=== PATIENT | female | born 1995 | race Caucasian/White ===

== ENCOUNTER 2016-04-17 19:14 | Inpatient (IN) | payer OTHER ==
[~2016-04-17] VITALS: Ht 182.9 cm; Wt 118.8 kg
[~2016-04-17 19:14] MED LIST: METH36TA2 PO; [UNRECOGNIZED DRUG - CODE] PO
--- NOTE | 2016-04-17 22:08 | DRSVH ---
PROCEDURE: US OB BIOPHYSICAL PROFILE AND UMBILICAL DOPPLER INDICATIONS: HEARTBEAT OUTSIDE/PRIOR DATING DATA: Last menstrual period (LMP): 07/22/15. LMP-based estimated date of delivery (MEHUL): 04/27/16. First dating scan (date and location): 10/2515. Dr. Noriega's office. Estimated date of delivery (MEHUL) from first dating scan: 04/24/15. TECHNIQUE: Real-time scanning was performed of the fetus for biophysical profile, with image documentation. Col or and pulse Doppler interrogation was also performed of the umbilical artery near its insertion into the placenta. Endovaginal scanning: Not performed COMPARISON: None. FINDINGS: General: A single living intrauterine gestation is present. Presentation: Vertex. Placenta: Placental position is anterior, without previa. Amniotic fluid index: 13.0 cm, normal range is 5-24 cm. heart rate: 157 beats per minute. Maternal cervical canal: Not visualized Estimated gestational age from initial scan: 39 weeks, zero d ays. Biophysical profile: Tone: 2 points. Movement: 2 points. Respiration: 2 points. Largest pocket of fluid: 2 points. IMPRESSION: 1. Single live intrauterine gestation in vertex position with 8/8 biophysical profile. Dictated by: Stephie Vasquez M.D. on 04/17/2016 at 22:06 Approved by: Stephie Vasquez M.D. on 04/17/2016 at 22:06
[2016-04-18] MEDS ORDERED: Lactated Ringer's 1,000 ML IV PRN (00:12)
[2016-04-18] MEDS ORDERED: Oxytocin 30 Units/500 mL LR 30 UNITS in IV Premix 1 EACH IV PRN (00:15)
[2016-04-18] MEDS ORDERED: Hemorrhage Kit, Post Partum XX ONE (00:15)
[2016-04-18] MEDS ORDERED: Methylergonovine 0.2 mg/mL Inj IM PRN (00:15)
[2016-04-18] MEDS ORDERED: Sodium Chloride LOK Flush 10 mL Syringe IVFLUSH PRN (00:15)
[2016-04-18] MEDS ORDERED: Carboprost 250 mCg/mL Inj IM PRN (00:15)
[2016-04-18] MEDS ORDERED: Oxytocin 10 Unit/mL Inj IM PRN (00:15)
[2016-04-18 01:07] LABS: BASOPHILS % (AUTO) 0.1 % (0-3); EOSINOPHILS % (AUTO) 0.7 % (0-5); MONOCYTES % (AUTO) 5.9 % (4-12); Mean Corpuscular Hemoglobin 30.3 pg (27.0-35.0); Mean Corpuscular Volume 91.8 fL (81-100); NEUTROPHILS % (AUTO) 79.4 % (40-74); Platelet Count 263 bil/L (150-400)
--- NOTE | 2016-05-20 08:53 | PCM.DC.MED ---
Discharge Summary Date of Service May 20, 2016 Dates of Hospitalization Date of Hospital Admission Apr 17, 2016 at 23:04 Date of Discharge: May 19, 2016 Providers: Admitting Physician: Diaz Noriega MD Primary Care Physician: Debora Servin PA-C Attending Physician: Diaz Noriega MD Procedures XRay, CTs & MRIs US OB BIOPHYSICAL PROFILE AND UMBILICAL DOPPLER INDICATIONS: HEARTBEAT OUTSIDE/PRIOR DATING DATA: Last menstrual period (LMP): 07/22/15. LMP-based estimated date of delivery (MEHUL): 04/27/16. First dating scan (date and location): 10/2515. Dr. Noriega's office. Estimated date of delivery (MEHUL) from first dating scan: 04/24/15. TECHNIQUE: Real-time scanning was performed of the fetus for biophysical profile, with image documentation. Color and pulse Doppler interrogation was also performed of the umbilical artery near its insertion into the placenta. Endovaginal scanning: Not performed COMPARISON: None. FINDINGS: General: A single living intrauterine gestation is present. Presentation: Vertex. Placenta: Placental position is anterior, without previa. Amniotic fluid index: 13.0 cm, normal range is 5-24 cm. heart rate: 157 beats per minute. Maternal cervical canal: Not visualized Estimated gestational age from initial scan: 39 weeks, zero days. Biophysical profile: Tone: 2 points. Movement: 2 points. Respiration: 2 points. Largest pocket of fluid: 2 points. IMPRESSION: 1. Single live intrauterine gestation in vertex position with 8/8 biophysical profile. Dictated by: Stephie Vasquez M.D Hospital Course This is a 20 year old female with early labor. She has been having stuttering onset of contractions, with a concern of poor beat to beat variability with a baseline in the 130's and slowly drifting HR between 150 and 125, without reassuring accelerations. BPP was done that was normal. That strip was reviewed with Dr. Santos and she was then able to return home. Exam Test 04/17/16 20:50 White Blood Count 19.0th/mm3 (3.8-10.1) Red Blood Count 4.16mil/mm3 (3.90-5.20) Hemoglobin 12.6g/dL (12.0-15.6) Hematocrit 38.2% (35.0-46.0) Mean Corpuscular Volume 91.8fL (81-100) Mean Corpuscular Hemoglobin 30.3pg (27.0-35.0) Mean Corpuscular Hemoglobin Concent 33.0% (32.0-37.0) Red Cell Distribution Width 13.0% (12.3-15.4) Platelet Count 263bil/L (150-400) Neutrophils (%) (Auto) 79.4% (40-74) Lymphocytes (%) (Auto) 13.2% (14-46) Monocytes (%) (Auto) 5.9% (4-12) Eosinophils (%) (Auto) 0.7% (0-5) Basophils (%) (Auto) 0.1% (0-3) Hold Purple Top Tube Received (Received) Hold [place] Top Tube Received (Received) Discharge Medications Discharge Medications ([Ascorbic Acid]) 500 MG TABLET 500 MG PO BIDWM Prescribed by: ISA NORIEGA MD Ferrous Sulfate (Feosol) 325 Mg Tablet 325 MG PO BIDWM Prescribed by: ISA NORIEGA MD Vit W-Ca,Fe,FA(<1 mg) ( Formula) 1 Each Tablet 1 EACH PO DAILY (Reported) As needed Ibuprofen (Ibuprofen) 800 Mg Tablet 800 MG PO Q6H PRN PRN For Pain Prescribed by: MD Leann RENTERIA H Edwin MD May 20, 2016 08:48
--- NOTE | 2016-05-20 08:57 | PCM.HPOB ---
Subjective Referring Provider: Admitting Physician: Diaz Noriega MD Primary Care Physician: Debora Servin PA-C Attending Physician: Diaz Noriega MD Chief Complaint This is a 20 year old female with early labor. She has had stuttering onset of contractions, with concern has been poor beat to beat variability with a baseline in the 130's and slowly drifting HR between 150 and 125, without reassuring accelerations. A BPP will be done and the strip will be reviewed with Dr. Santos. Allergy Coded Allergies: Penicillins (Verified Allergy, Severe, rash, 08/17/12) vancomycin (Verified Allergy, Mild, POSSIBLE ALLERGY,ITCHING, 02/07/09) Sulfa (Sulfonamide Antibiotics) (Verified Allergy, Unknown, rash, 04/26/16) Exam Constitutional: Well-developed HEENT: Atraumatic Abdomen: Gravid, Normal bowel sounds, No tenderness Extremities: No Edema OB Intrapartum Assessment/Plan Assessment This is a 20 year old female with early labor, contractions now resolved, BPP normal and tracing improved. Returning home for continued clinic care. Post plan: Anticipate discharge home today Diaz Noriega MD May 20, 2016 08:49
[2016-09-29] MEDS ORDERED: DESO1TAB35 PO (18:34)
[2016-09-29] MEDS ORDERED: CITA40TA13 PO (18:34)
[2016-09-29] MEDS ORDERED: BUSP10TA2 PO (18:34)
== END 2016-04-18 07:43 | disposition home or self-care (01) | DRG 780 ==
LOC: FBCO 19:14 → FBC 23:04
PROVIDERS: ADMIT Family Medicine; ATTEND Family Medicine
DX: O47.1 False labor at or after 37 completed weeks of gestation (principal); Z3A.39 39 weeks gestation of pregnancy

== ENCOUNTER 2016-04-25 22:24 | Inpatient (IN) | payer OTHER ==
[~2016-04-25] VITALS: Ht 177.8 cm; Wt 121.1 kg
[2016-04-25] MEDS ORDERED: Lactated Ringer's 2,000 ML IV ONE (23:30)
[2016-04-26] MEDS ORDERED: Lactated Ringer's 1,000 ML IV ONE (01:00)
--- NOTE | 2016-04-26 03:23 | PCM.HPOB ---
Subjective Referring Provider: Admitting Physician: Primary Care Physician: Debora Servin PA-C Attending Physician: Diaz Noriega MD Chief Complaint Contractions and Heart Tracing issues History of Present History of Present Illness This is a 20 year old female with early labor. She has had a week of stuttering onset of contractions, with 2 previous evals in the center, now presenting with increasing intensity of contractions all day yesterday, and contractions on the monitor for 4 hours so far, every 2-5 minutes. The concern has been poor beat to beat variability with a baseline in the 130's and slowly drifting HR between 150 and 125, without reassuring accelerations. There have been 3 late decelerations, drifting slowly down to the 120s after a contraction. A week ago she had the same heart beat concern and a BPP was done that was normal. That strip was reviewed with Dr. Santos and she was then able to return home, returning once with dehydration/maternal tachycardia from vomiting, responding to IVF, and with a reassuring tracing at that visit 2 days ago. prior to this point has been routine. OB History: (1), Para (0), Term Obstetrical Complications: None Past Medical History Hx Tobacco Use: No Hx Alcohol Use: No Hx Substance Use: No Past Family History Living Arrangement: with Family Genetic Screening/Counseling Genetic Screening/Counseling: Negative Genetic Screening: Neural tube defect, Down syndrome Review of Systems Constitutional: Y: Change of appitite, Chills, Dizziness, Fever, Malaise, Other , Pain, Sweats, Weakness, Weight loss Eyes: Denies: Blurred Vision, Conjunctive Inflammation, Double Vision, Eyelid Inflammation, Other, Pain, Redness, Vision Changes ENT: Denies: Dental Problems, Dysphagia, Ear Discharge, Ear Pain, Hoarseness, Membranes Dry, Nasal Congestion, Nose Discharge, Nose Pain, Other, Throat Pain, Tinnitus, Ulcers/Sores in Mouth Cardiovascular: Denies: Chest Pain, Edema, Orthopnea, Other, Palpitations, SOB while laying flat Respiratory: Denies: Cough, Cough with bloody sputum, Other, Pleuritic Chest Pain, Pleuritic Chest Pain, SOB with Exertion, Sputum, Wheezing Gastrointestinal: Reports: Abdominal Pain Genitourinary: Denies: Anuria, Change in Frequency, Dysuria, Hematuria, Incontinence, Nocturia, Other, Retention Musculoskeletal: Denies: Back Pain, Deformity, Limitation of Function, Neck Pain, Other, Redness, Shoulder Pain, Swelling Skin/Breasts: Denies: Bruising, Discharge, Dry or Flakiness, Jaundice, Lesions , Masses, Mastalgia, Other, Rash, Scars, Ulcers Skin: Denies: Bruising, Dry or Flakiness, Jaundice, Lesions, Other, Rash, Scars , Ulcers Neurological: Denies: Change in Speech, Confusion, Dizziness, Incoordination, Numbness, Other, Seizures, Somnolence, Tremors, Weakness Psychologic: Denies: Agitation, Anxious, Apprehensive, Depression, Insomnia, Instability, Nervousness, Other Endocrine: Denies: Blood Glucose Review, Change in Appitite, Diaphoresis, Excessive Thirst, Intolerent to Heat/Cold, Other, Recent A1C, Urinating frequently Hematologic: Denies: Abnormal bleeding, Adenopathy, Bruising, Other Allergy Coded Allergies: Penicillins (Verified Allergy, Severe, rash, 08/17/12) vancomycin (Verified Allergy, Mild, POSSIBLE ALLERGY,ITCHING, 02/07/09) Sulfa (Sulfonamide Antibiotics) (Verified Allergy, Unknown, rash, 04/26/16) Exam Vital Signs Exam FHT 130-150 Cervix 1.5 cm, 70% effaced, Vertex, -2 station Absent reassuring accelerations Constitutional: Well-developed, Well-nourished HEENT: Atraumatic Lungs: Clear to Auscultation Heart: Exam Unremarkable Abdomen: Gravid Extremities: No Edema Neurological/Psychiatric: Oriented X3 Neuro: Grossly Neurologically Intact Labs/Diagnostics Maternal Blood Type: O Hx Rho(D) Immune Globulin: Yes Antibody Screen: Negative Group B Strep Results: Negative Previous Infant with GBS: No Rubella: Immune OB Intrapartum Assessment/Plan Assessment 39 6/7 Weeks EGA Early Labor Non Reassuring Heart Tracing Discussed with Dr. Radford Proceed with BPP. If reassuring will try on Pitocin. If not normal will proceed with operative delivery Diaz Noriega MD Apr 26, 2016 03:04
[2016-04-26] MEDS ORDERED: Hemorrhage Kit, Post Partum XX ONE (03:50)
[2016-04-26] MEDS ORDERED: Methylergonovine 0.2 mg/mL Inj IM PRN (03:50)
[2016-04-26] MEDS ORDERED: Sodium Chloride LOK Flush 10 mL Syringe IVFLUSH PRN (03:50)
[2016-04-26] MEDS ORDERED: Oxytocin 10 Unit/mL Inj IM PRN (03:50)
[2016-04-26] MEDS ORDERED: Oxytocin 30 Units/500 mL LR 30 UNITS in IV Premix 1 EACH IV PRN (03:50)
[2016-04-26] MEDS ORDERED: Carboprost 250 mCg/mL Inj IM PRN (03:50)
[2016-04-26 04:02] LABS: Mean Corpuscular Hemoglobin 30.1 pg (27.0-35.0); Mean Corpuscular Volume 91.4 fL (81-100)
[2016-04-26] MEDS ORDERED: Oxytocin 30 Units/500 mL LR Premix IV SCH (05:35)
[2016-04-26] MEDS ORDERED: PREN-12 PO (05:40)
[2016-04-26] MEDS: Lactated Ringer's 1,000 ML IV PRN ×2 (06:15→18:36)
--- NOTE | 2016-04-26 08:29 | DRSVH ---
PROCEDURE: US OB BIOPHYSICAL PROFILE AND UMBILICAL DOPPLER INDICATIONS: Non reassuring Heart Rate tracing OUTSIDE/PRIOR DATING DATA: Last menstrual period (LMP): 07/22/15. LMP-based estimated date of delivery (MEHUL): 04/27/16. First dating scan (date and location): 11/01/15. Estimated date of delivery (MEHUL) from first dating scan: 04/24/16. TECHNIQUE: Real-time scanning was performed of the fetus for biophysical profile, with image documentation. Col or and pulse Doppler interrogation was also performed of the umbilical artery near its insertion into the placenta. COMPARISON: [facility] Ultrasound, US, US OB>14 WKS ANATOMY COMP, 12/26/2015, 14:33. [facility], US, US OB BIOPHYSICAL+UMB DOP, 04/17/2016, 21:04. FINDINGS: General: A single living intrauterine gestation is present. Presentation: Vertex Placenta: Placental position is anterior, without previa. 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 Single living intrauterine in vertex position redemonstrated. 2. Normal biophysical profile score of 8/8. 3. Normal umbilical artery Doppler with preserved diastolic flow. Dictated by: Rony Mendez M.D. on 04/26/2016 at 8:27 Approved by: Rony Mendez M.D. on 04/26/2016 at 8:27
[2016-04-26] MEDS ORDERED: Bupivacaine-MPF 0.25% 30 mL Inj ONE (15:00)
--- NOTE | 2016-04-26 18:35 | PCM.PNOBIP ---
Subjective Date of Service Apr 26, 2016 Delivery plan: Spontaneous Vaginal Delivery Subjective FHT are in the normal range with good variability and accels. CTX are every 3-6 min on Pitocin 14. Temp is 98.0 She appears very uncomfortable. Pain Management: Epidural Group B Strep Results: Negative Rubella: Immune Blood Type: O Labs Laboratory Tests 04/26/16 00:02: White Blood Count 21.0, Red Blood Count 4.32, Hemoglobin 13.0, Hematocrit 39.5, Mean Corpuscular Volume 91.4, Mean Corpuscular Hemoglobin 30.1, Mean Corpuscular Hemoglobin Concent 32.9, Red Cell Distribution Width 13.1, Platelet Count 283 Exam Vital Signs Vital Signs Contraction frequency in minutes: MVUs: Vital Signs: VS reviewed, stable Heart Tracings Heart Tones Baseline bpm Heart Rate Variability: Moderate Heart Rate Accelleration: Present Heart Rate Deceleration: Present Heart Rate Category: I Tocometry/IUPC Contraction frequency in minutes: MVUs: Sterile Vaginal Exam Cervical Dilation: 3 cms Cervical Effacement: 80 % Station: -2 Exam General: Oriented X3 OB Intrapartum Assessment/Plan Assessment Continued Pitocin Induction for repeated episodes of non reassuring FHR pattern , interspersed with normal variability and BPP normal X 2. Scalp Electrode and IUPC, AROM with clear fluid at this time. (18:30) Continue Pitocin and planned Epidural. Intrapartum plan: AROM, scalp electrode placed Intrapartum Pain Management: May have epidural when desired Diaz Noriega MD Apr 26, 2016 18:35
[2016-04-26] MEDS ORDERED: Lactated Ringer's 500 ML IV ONE (18:48)
[2016-04-26] MEDS ORDERED: Lactated Ringer's 1,000 ML IV SCH (18:48)
[2016-04-26] MEDS ORDERED: Ondansetron 2 mg/mL 2 mL Inj IVPUSH PRN (18:50)
[2016-04-26] MEDS ORDERED: fentaNYL 2 mCg/mL-Bupiv 0.125% 100 ML EPIDURAL SCH (18:50)
[2016-04-26] MEDS ORDERED: EPHEDrine Sulfate 50 mg/mL Inj IVPUSH PRN (18:50)
[2016-04-26] MEDS ORDERED: Atropine 1 mg/10 mL (Code) Syringe IVPUSH PRN (18:50)
--- NOTE | 2016-04-26 19:29 | PCM.HPANE ---
Patient Data Date of Service: Apr 26, 2016 Surgeon Admitting Provider:Diaz Noriega MD Attending Provider:Diaz Noriega MD Primary Care Physician:Debora Servin PA-C Other Provider:Em Best Anesthesia Reason for Visit Term Labor Check TERM LABOR CHECK Ht/WT & BMI Weight (Kilograms): 121 Body Mass Index 38.3 Allergies Coded Allergies: Penicillins (Verified Allergy, Severe, rash, 08/17/12) vancomycin (Verified Allergy, Mild, POSSIBLE ALLERGY,ITCHING, 02/07/09) Sulfa (Sulfonamide Antibiotics) (Verified Allergy, Unknown, rash, 04/26/16) Past Anesthesia History Anesthesia History: Denies:: Abnormal Airway, Anesthesia Reactions, Difficult Intubation, Fam Anesthesia Reaction, Fam Malignant Hypertherm, Malignant Hyperthermia Diabetes History Hx Diabetes?: No MRSA MRSA: Yes Medications Hypertension Medication: No Home Meds Incl Beta Renee: No Reported Medications Vit W-Ca,Fe,FA(<1 mg) ( Formula)1 Each Tablet1 Each PO DAILY 04/26/16 Discontinued Reported Medications Hydroxyzine Hcl-Expunged Drug, Do Not Renew! (Vistaril-Expunged Drug, Do Not Renew!)100 Mg/2 Ml Soln50 Mg PO HS 08/17/12 Methylphenidate-Expunged Drug, Do Not Renew! (Concerta-Expunged Drug, Do Not Renew!)36 Mg/Bottle Tab.osm.2436 Mg PO DAILY 08/17/12 History History of ENT Problems?: No HEENT History: Denies:: Abnormal Airway Cataracts Difficult Intubation Dysphagia Hearing Problem Sinus Problem TMJ Hx of Heart Problems?: No Cardiovascular History: Denies:: AICD Abdominal Aortic Aneurism Atrial Fibrillation Cardiac Surgery Chest Pain Congestive Heart Failure Edema Heart Murmur Hypertension Irregular Heartbeat Pacemaker Rheumatic Fever Thrombophlebitis Valvular Heart Disease Hx of Respiratory Problem?: No Respiratory History: Denies:: Asthma COPD Chest Surgery Cough Dyspnea Emphysema Hemoptysis Oxygen Administration Pneumonia Pulmonary Embolism Tuberculosis Use of C-PAP Machine Hx Neurologic Problems?: No Neurological History: Denies:: Alzheimer's Disease CVA Dementia Dizziness Headaches Multiple Sclerosis Parkinson's Disease Seizures Hx of GI Problems?: No Gastrointestinal History: Denies:: Cirrhosis Diverticulitis Gastroesphageal Reflux Gastrointestinal Bleeding Heartburn Hepatitis Hiatal Hernia Rectal Bleeding Hx of Problems?: No Genitourinary History: Denies:: HX of Hemodialysis Kidney Stones Urinary Tract Infection HX of Peritoneal Dialysis: No Female Hx: Positive for:: Currently Denies:: Endometriosis Pelvic Inflammatory Problems with Breasts? Skin History: Denies:: History Skin Disorders? Pressure Ulcers Hx Musculoskeletal Problems?: No Musculoskeletal History: Denies:: Back Injury Degenerative Joint Joint Replacement Musculoskeletal Trauma Systemic Lupus Hx of Psycho/Social Problems?: Yes (ADHD) Psycho Social History: Denies:: Anxiety Bipolar Disorder Hx Depression Suicide Attempt Hx Surgeries?: Yes Hx Any Other Health Problems?: No Other History: Denies:: Cancer Endocrine Disease Hospitalization Thyroid Disease History Blood Transfusions: Denies:: Blood Transfuse Reaction Blood Transfusions Hx Diabetes: No Hx Alcohol Use: NoHx Substance Use: No Smoking Status: Never Smoker Have You Smoked inLast 12 mo: No Stop/Bang Treated for Sleep Apnea?: No Do You Have a CPAP Machine?: No MARS Risk Assessment: Low Risk, <3 Yes Risk Assessment Category Category 1A: Patient has history of documented sleep apnea, and HAS NOT received any narcotic, sedative or anesthesia administration during this stay. Category 1B: Patient has history of documented sleep apnea, and HAS received any narcotic , sedative or anesthesia administration during this stay Category 2: Patient has SUSPECTED Obstructive Sleep Apnea, and HAS received any narcotic , sedative or anesthesia administration during this stay. Category 3: Patient has SUSPECTED Obstructive Sleep Apnea and HAS NOT received narcotic, sedative or anesthesia administration during this stay. Category 4: Outpatient in Procedural Areas with known sleep apnea or who screen positive for High Risk via the STOP/BANG questionnaire. Exam Exam General Appearance: Alert, Oriented X3, Cooperative HEENT/AIRWAY: MP 3, Neck Movement (OK, ), Mouth Opening (Wide, tongue ring) Lungs: Clear to Auscultation, Normal Air Movement Heart: Regular Rate/Rhythm, Normal S2 Meds/Labs/Diagnostics Admission Meds Current Medications Lactated Ringer's 2,000 ml @ 0 mls/hr Q0M ONCE IV Last administered on 00:05; Start 04/25/16 at 23:30; Stop 04/25/16 at 23:31; Status DC Lactated Ringer's 1,000 ml @ 0 mls/hr Q0M ONCE IV Last administered on 01:17; Start 04/26/16 at 01:00; Stop 04/26/16 at 01:01; Status DC Oxytocin/Lactated Ringer's/Premix (Pitocin 30 Units/500 mL LR/ IV Premix) 500 ml @ 0 mls/hr Q0M IV Last administered on 04/26/16t 06:16; Start 04/26/16 at 05 :35 Labs Test 04/26/16 00:02 White Blood Count 21.0th/mm3 (3.8-10.1) Red Blood Count 4.32mil/mm3 (3.90-5.20) Hemoglobin 13.0g/dL (12.0-15.6) Hematocrit 39.5% (35.0-46.0) Mean Corpuscular Volume 91.4fL (81-100) Mean Corpuscular Hemoglobin 30.1pg (27.0-35.0) Mean Corpuscular Hemoglobin Concent 32.9% (32.0-37.0) Red Cell Distribution Width 13.1% (12.3-15.4) Platelet Count 283bil/L (150-400) Plan Impression Patient chart reviewed, patient interviewed and anesthestic plan with risks, benefits, and alternatives discussed, and informed consent obtained. NPO Status: L&D Protocol ASA Physical Status: ASA2 Mod Systemic Disease Anesthetic Plan: Epidural Bene/Risks/Altern/Consents: Yes HP Complete Prior to Induction: Yes Leon Garcia MD Apr 26, 2016 18:49
[2016-04-27] MEDS ORDERED: Benzocaine (Dermoplast) 20% 60 Gm Spray TOPICAL PRN (06:55)
[2016-04-27] MEDS ORDERED: LANOlin HPA 7 Gm Ointment TOPICAL PRN (06:55)
[2016-04-27] MEDS ORDERED: Hemorrhage Kit, Post Partum XX ONE (06:55)
[2016-04-27] MEDS ORDERED: HYDROcodone-APAP 5-325 mg Tablet PO PRN (06:55)
[2016-04-27] MEDS ORDERED: Witch Hazel-Glycerin Pads TOPICAL PRN (06:55)
[2016-04-27] MEDS: Lactated Ringer's 1,000 ML IV SCH ×2 (07:54→22:54)
[2016-04-27] MEDS: Sodium Chloride LOK Flush 10 mL Syringe IVFLUSH SCH ×2 (07:54→16:30)
[2016-04-27] MEDS: Ascorbic Acid 500 mg Tablet PO SCH ×2 (07:55→20:07)
--- NOTE | 2016-04-27 19:34 | PCM.OBVAG ---
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 An IUPC was placed for safer/more accurate pitocin titration. AROM with clear fluid and ROM time of 12 hours. She pushed for 2 and a half hours with reassuring tracing. She delivered a 10 pound male occiput anterior with slow delivery of the shoulders, eventually needing the posterior shoulder to be persuaded out with a finger under the axilla, then rotating in a corkscrew fashion as the rest of the body slowly pushed out. There was no nuchal cord. The baby was limp but stimulation on the mothers chest was sufficient to provoke normal tone and cry/ breathing effort. The placenta was removed intact in about 10 minutes with a vigorous bleed despite uterine massage and manual exploration confirming no retained membranes. There was no vaginal or perineal tear. Total blood loss was estimated at 1,000 ml. Specimen Specimens: Placenta Post Procedure Plan Post delivery Condition: Mom stable, Baby stable to nursery Diaz Noriega MD Apr 27, 2016 07:00
[2016-04-28] MEDS: Sodium Chloride LOK Flush 10 mL Syringe IVFLUSH SCH ×3 (00:30→16:30)
[2016-04-28] MEDS: Lactated Ringer's 1,000 ML IV SCH ×2 (06:54→14:54)
[2016-04-28 07:48] LABS: Mean Corpuscular Hemoglobin 30.4 pg (27.0-35.0); Mean Corpuscular Volume 92.5 fL (81-100)
[2016-04-28] MEDS: Ascorbic Acid 500 mg Tablet PO SCH ×2 (10:50→20:23)
--- NOTE | 2016-04-28 14:18 | PCM.PNOBPP ---
Subjective Date of Service Apr 28, 2016 Post : Spontaneous Vaginal Delivery Lochia: Normal Pain Management: PO pain meds, Epidural Gastrointestinal: Good Appetite, No N/V Postop Activity: Ambulating Independently Group B Strep Results: Negative Rubella: Immune Blood Type: O Labs Laboratory Tests 04/28/16 07:12: White Blood Count 18.3, Red Blood Count 3.22, Hemoglobin 9.8, Hematocrit 29.8, Mean Corpuscular Volume 92.5, Mean Corpuscular Hemoglobin 30.4, Mean Corpuscular Hemoglobin Concent 32.9, Red Cell Distribution Width 12.9, Platelet Count 249 Exam Vital Signs Vital Signs: VS reviewed, stable Exam Abdomen: Uterus is, Fundus firm Perineum: Intact : Voiding without difficulty Extremities: No cords, No tenderness/swelling, No edema Lungs: Clear to Auscultation Heart: Exam Unremarkable, Regular Rate/Rhythm, No Murmurs/Rubs/Gallops General: Alert, Oriented X3, Cooperative, No Acute Distress OB Post Assessment/Plan Assessment Day 1 S/P Pitocin Induced Term Vaginal Delivery Post Anemia/Leukocytosis --Repeat CBC tomorrow --Continue Vicodin/Ibuprofen prn --Breast feeding coaching --Home tomorrow Pain Evaluation: Adequate Pain Control Post plan: Discharge home tomorrow Diaz Noriega MD Apr 28, 2016 14:18
[2016-04-29 06:48] LABS: Mean Corpuscular Hemoglobin 30.3 pg (27.0-35.0); Mean Corpuscular Volume 92.7 fL (81-100)
[2016-04-29] MEDS: Ascorbic Acid 500 mg Tablet PO SCH (09:05)
--- NOTE | 2016-04-29 11:26 | PCM.DIOB ---
Obstetrical Disch Instruction Date of Service: Apr 29, 2016 Dates of Hospitalization Date of Hospital Admission Apr 26, 2016 at 03:15 Providers Admitting Physician: Diaz Noriega MD Primary Care Physician: Debora Servin PA-C Attending Physician: Diaz Noriega MD Discharge Diagnosis Discharge Diagnosis Day 2 post Vaginal Delivery 10 pound male Problems: Diet Discharge Diet: No restrictions Activity Discharge Activity-General: Pelvic Rest for 6 weeks, Balance rest and activity Dressing and Incisional Care Hygiene: May shower Follow Up Plan Follow-up Provider (F9): Diaz Noriega MD Follow-up appointment: Weeks (1-2) Call your provider for: Fever or Chills, Shortness of breath, Heavy vaginal bleeding, Heavy bleeding, Excessive constipation, Vaginal discomfort, Red painful breasts Diaz Noriega MD Apr 29, 2016 11:26
[2016-04-29] MEDS ORDERED: IBUP800T28 PO (11:27)
[2016-04-29] MEDS ORDERED: Ascorbic Acid PO (11:27)
[2016-04-29] MEDS ORDERED: FERR-74 PO (11:27)
[2016-04-29 14:00] VITALS: BP 114/64; PULSE 87; RESP 17
--- NOTE | 2016-04-29 22:26 | PCM.DC.OB ---
Obstetrical Discharge Summary Date of Service Apr 29, 2016 Date of hospital admission Apr 26, 2016 at 03:15 Date of Discharge: Apr 29, 2016 Providers Admitting Physician: Diaz Noriega MD Primary Care Physician: Debora Servin PA-C Attending Physician: Diaz Noriega MD Diagnosis at Time of Discharge Post Anemia - Hemoglobin 9.1 Pitocin Induced Vaginal Delivery for unreassuring heart rate tracing. 10 pound Male infant Problems: Brief History and Physical: This is a 20 year old female with early labor. She has had a week of stuttering onset of contractions, with 2 previous evals in the center, now presenting with increasing intensity of contractions all day yesterday, and contractions on the monitor for 4 hours so far, every 2-5 minutes. The concern has been poor beat to beat variability with a baseline in the 130's and slowly drifting HR between 150 and 125, without reassuring accelerations. There have been 3 late decelerations, drifting slowly down to the 120s after a contraction. A week ago she had the same heart beat concern and a BPP was done that was normal. That strip was reviewed with Dr. Santos and she was then able to return home, returning once with dehydration/maternal tachycardia from vomiting, responding to IVF, and with a reassuring tracing at that visit 2 days ago. prior to this point has been routine. Hospital Course: Day 1 S/P Pitocin Induced Term Vaginal Delivery Post Anemia/Leukocytosis WBC 14.1 Hgb 9.1 --Repeat CBC at followup --Continue Iron and Vitamin C Vicodin/Ibuprofen prn --Breast feeding coaching --Home today Heart: RRR No murmu Lungs:CTAB Abd: Uterus contracted. No calf tenderness or ankle edema ([Ascorbic Acid]) 500 MG TABLET 500 MG PO BIDWM Prescribed by: ISA NORIEGA MD Ferrous Sulfate (Feosol) 325 Mg Tablet 325 MG PO BIDWM Prescribed by: ISA NORIEGA MD Ibuprofen (Ibuprofen) 800 Mg Tablet 800 MG PO Q6H PRN PRN For Pain Prescribed by: ISA NORIEGA MD Vit W-Ca,Fe,FA(<1 mg) ( Formula) 1 Each Tablet 1 EACH PO DAILY (Reported) Last Taken: Unknown Dose on 04/24/16 Discontinued Medications Hydroxyzine Hcl-Expunged Drug, Do Not Renew! (Vistaril-Expunged Drug, Do Not Renew!) 100 Mg/2 Ml Soln 50 MG PO HS (Reported) Methylphenidate-Expunged Drug, Do Not Renew! (Concerta-Expunged Drug, Do Not Renew!) 36 Mg/Bottle Tab.osm.24 36 MG PO DAILY (Reported) Discharge Diet: No restrictions Discharge Activity-General: Pelvic Rest for 6 weeks Diaz Noriega MD Apr 29, 2016 11:27
[2016-09-29] MEDS ORDERED: CITA40TA13 PO (18:34)
[2016-09-29] MEDS ORDERED: DESO1TAB35 PO (18:34)
[2016-09-29] MEDS ORDERED: BUSP10TA2 PO (18:34)
== END 2016-04-29 15:01 | disposition home or self-care (01) | DRG 775 ==
LOC: FBCO 22:24 → FBC 04-26 03:15
PROVIDERS: ADMIT Family Medicine; ATTEND Family Medicine
PROC: 10E0XZZ Delivery of Products of Conception, External Approach (ICD-10-PCS; principal; 2016-04-27)
PROC: 10907ZC Drainage of Amniotic Fluid, Therapeutic from Products of Conception, Via Natural or Artificial Opening (ICD-10-PCS; 2016-04-27)
PROC: 10H07YZ Insertion of Other Device into Products of Conception, Via Natural or Artificial Opening (ICD-10-PCS; 2016-04-27)
DX: O76 Abnormality in fetal heart rate and rhythm complicating labor and delivery (principal); O99.03 Anemia complicating the puerperium; D64.9 Anemia, unspecified; Z37.0 Single live birth; Z3A.40 40 weeks gestation of pregnancy

== ENCOUNTER 2016-05-20 13:24 | Observation (INO) | payer OTHER ==
[~2016-05-20] VITALS: Ht 182.9 cm; Wt 111.0 kg
[2016-05-20] VITALS (7 sets, daily range): BP systolic 117–136; BP diastolic 82–95; PULSE 80–136; RESP 18–20; O2SAT 96–100
[~2016-05-20 13:24] MED LIST changes: +Ascorbic Acid PO; +FERR-74 PO; +IBUP800T28 PO; -METH36TA2 PO; +PREN-12 PO; -[UNRECOGNIZED DRUG - CODE] PO
--- NOTE | 2016-05-20 14:09 | ED.REPORT ---
HPI-General Illness Date of Service May 20, 2016 ED Provider: Dr. Townsend Pt is a 20 y/o healthy female presenting to the ED with her father in law due to seizure at 13:00 today. The patient states that she had a witnessed seizure at about 13:00. The patient was sitting in a chair and began to moan and her hands were up in the air with straightened legs and generalized shaking. This lasted about 3 seconds. The patient does not remember having the seizure. The last thing she remember was watching TV and she had no sense of aura. After the seizure, the patient was postictal in the sense that she was confused and had some trouble walking. She had 1 seizure previously when she was 4 months old and she does not know whether or not it was a febrile seizure. She has no personal or family history of epilepsy. Pt denies bowel or bladder incontinence , focal numbness or weakness, MATTHEW, slurred speech, fever, neck stiffness, facial droop, peripheral edema. The patient is 3 weeks . There were no complications with her . She states her heart rate usually runs at about 100 bpm. Nursing Notes Stated Complaint: RAPID HEART RATE Chief Complaint: General Complaint Nursing Notes Reviewed: Yes Allergies: Coded Allergies: Penicillins (Verified Allergy, Severe, rash, 05/20/16) vancomycin (Verified Allergy, Mild, POSSIBLE ALLERGY,ITCHING, 05/20/16) Sulfa (Sulfonamide Antibiotics) (Verified Allergy, Unknown, rash, 05/20/16) No Active Prescriptions or Reported Meds General Time Seen by MD: 14:08 Chief Complaint Seizure Hx Obtained From: Patient Arrived By: Walk-in Sudden in Onset?: No Onset Occurred: 1 - 4 hours ago Severity: Current: No pain currently Severity: Maximum: No pain Recent Healthcare: No recent doctor visit, No recent hospitalization Similar Sx Previous: No Past Medical History Past Medical History Hx abscess Past Surgical History Yes, unspecified Smoking History Never Smoker Ambulatory Status Independent Review of Systems Full Review of Systems Constitutional: Denies: Chills, Fever Cardiovascular: Reports: Palpitations GI: Denies: Diarrhea, Nausea, Vomiting Neurologic: Reports: Abnormal movement, Change LOC, Confusion, Seizure, Shaking , Denies: Bladder dysfunction, Bowel dysfunction, Focal weakness, Headache, Numbness, Slurred speech, Syncope, Unable to speak, Vision change Complete sys rev & neg: except as marked. Physical Exam Vital Signs Vital Signs Date Time Temp Pulse Resp B/P Pulse Ox O2 Delivery O2 Flow Rate FiO2 05/20/16 14:45 111 20 135/86 05/20/16 13:32 37.2 136 20 136/95 96 Room Air Initial VS: Reviewed, Vital signs abnormal Head / Eyes: Atraumatic, Normocephalic, PERRL (3mm bilat) ENT: Mucous membranes moist, Conjunctiva normal, No scleral icterus Neck: Supple, Non-tender, Full range of motion Respiratory: Breath sounds normal, Clear to auscultation, No respiratory distress Abdomen / GI: Soft, Non-tender, No guarding, No rebound, No distention Extremities: Vascular intact, Neuro intact, No swelling, No tenderness Skin: Warm, Dry, No cyanosis Psychiatric: Mood/affect normal, Behavior normal, Normal thought content General/Constitutional: Awake, Alert, No acute distress, Well appearing, Cooperative, Not toxic appearing Cardiovascular: Regular rhythm, Heart sounds NL, No gallop, No murmurs, No rubs , Cap refill not delayed, Peripheral circulation NL Heart Rate / Rhythm: Positive: Tachycardia Neurologic: Oriented X3, Speech NL, No motor deficits, No sensory deficits, CN II - XII intact, Cerebellar NL, Memory NL Coarse resting tremor bilateral upper extremities Interpretation & Diagnostics Lab Results Interpretation Result Diagram: 05/20/16 1359 05/20/16 1359 Test 05/20/16 13:59 05/20/16 14:29 White Blood Count 12.9th/mm3 (3.8-10.1) Red Blood Count 4.03mil/mm3 (3.90-5.20) Hemoglobin 11.9g/dL (12.0-15.6) Hematocrit 36.7% (35.0-46.0) Mean Corpuscular Volume 91.1fL (81-100) Mean Corpuscular Hemoglobin 29.5pg (27.0-35.0) Mean Corpuscular Hemoglobin Concent 32.4% (32.0-37.0) Red Cell Distribution Width 12.1% (12.3-15.4) Platelet Count 339bil/L (150-400) Neutrophils (%) (Auto) 63.1% (40-74) Lymphocytes (%) (Auto) 27.6% (14-46) Monocytes (%) (Auto) 6.9% (4-12) Eosinophils (%) (Auto) 1.8% (0-5) Basophils (%) (Auto) 0.2% (0-3) Sodium Level 140mEq/L (134-144) Potassium Level 3.7mEq/L (3.5-5.2) Chloride Level 103mEq/L (97-108) Carbon Dioxide Level 21mmol/L (18-29) Blood Urea Nitrogen 7mg/dL (6-20) Creatinine 0.89mg/dL (0.57-1.00) Estimat Glomerular Filtration Rate 115mL/min (>59) Glucose Level 107mg/dL (60-99) Calcium Level 8.6mg/dL (8.5-10.1) Magnesium Level 1.9mg/dL (1.6-2.6) Total Bilirubin 0.2mg/dL (0.0-1.2) Aspartate Amino Transf (AST/SGOT) 20U/L (0-50) Alanine Aminotransferase (ALT/SGPT) 17U/L (0-32) Alkaline Phosphatase 97U/L (25-150) Total Protein 6.4g/dL (6.4-8.4) Albumin 3.9g/dL (3.4-5.0) Hold Puckett Top Tube Received (Received) Lactic Acid Level 2.3mmol/L (0.4-2.0) Thyroid Stimulating Hormone (TSH) 2.040uIU/mL (0.450-4.500) Free Thyroxine 1.20ng/dL (0.82-1.77) ECG Interpretation ECG Interpretation: Sinus tachycardia rate 115 Time: 14:53 Interpreted by: ED physician Normal ECG Interpretation: No acute ischemic changes, Normal QRS, Normal axis, Normal intervals, Adequate tracing CT Head Interpretation IMPRESSION: Seizure activity source is not found, no trauma identified. Depending on the clinical status followup by contrast enhanced MR scanning may be warranted. Dictated by: Miles Mooney M.D. on 05/20/2016 at 14:50 Approved by: Miles Mooney M.D. on 05/20/2016 at 14:51 Study: Head CT no contrast Interpretation / Wet Read by: Interpret - Radiologist Re-Eval/Medical Decision Med Decision/Clinical Course Pt is a 20 y/o healthy female presenting to the ED with her father in law due to seizure at 13:00 today. Other than febrile seizure as an she has no seizure history. She has had no head trauma. Seizure was described as tonic/ clonic lasting seconds and followed by a postictal state. She is now back to her regular baseline. Upon arrival, she is tachycardic with a heart rate in the 120s though otherwise afebrile with stable vital signs. Logic examination as above is nonfocal. EKG was obtained and interpreted by myself as documented above. CT scan was obtained and demonstrated no intracranial hemorrhage or mass lesion. Labs notable as below: CBC: Leukocytosis of 12.9 otherwise unremarkable CMP: Unremarkable Thyroid studies: TSH and free T4 normal Lactic acid 2.3 Patient exhibited no active seizure activity here in the emergency department today. She states that she is generally tachycardic at baseline with a heart rate in the low 100s though appears somewhat more tachycardic today. This improved with IV fluids. Lactic acid was elevated at 2.3 which is somewhat suggestive of seizure event. I see no evidence of acute infectious process. She is without any meningismus or fever suggestive of meningitis or encephalitis as a cause of her seizure. I see no obvious intracranial hemorrhage or mass lesion at this time. I feel that the patient requires admission for further seizure workup likely including MRI and EEG. LP deferred at this time. Patient discussed with admitting hospitalist and accepted for further management. She was transferred in stable condition. Source of Hx: Old records Time of Eval: 14:23 Re-Evaluation/Progress Note: Pt rechecked. Pt informed of need for admission for further neurological workup. Pt understands and agrees with plan for admission. All questions addressed. Consultation : Referral / Consult Name: Vy Lopez MD Consulted With: Hospitalist Call Returned at: 14:58 [place] Drawer: Will see patient, Agrees with eval, Agrees with plan, Accepts admit Counseled Regarding: Diagnosis, Lab results, Need for admission Discharge & Departure Primary Impression: Seizure Additional Impressions: Tachycardia Elevated lactic acid level Leukocytosis Leukocytosis type: unspecified Qualified Code: D72.829 - Elevated white blood cell count, unspecified Disposition: ADMITTED TO HOSPITAL Discharge Condition All VS Reviewed: Yes Condition: Stable Referrals: Debora Servin PA-C (PCP) Crit Care Except Billable Proc Time Spent: 30-74 minutes Services Performed: Patient management by me, Time spent at bedside, Reviewing test results, Reviewing imaging, Discussing patient care, Documentation in record, Time with fam/surrogate Scribe Attestation Portions of this note were transcribed by John Paul Roberts. I, Dr. Townsend personally performed the history, physical exam and medical decision-making; I reviewed and confirmed the accuracy of the information in the transcribed note. Signed by Kimmy Duarte, 05/20/16 - 1500 copies to: Debora Servin PA-C, Beck O MD May 20, 2016 14:09 JOHN PAUL ROBERTS May 20, 2016 14:12
[2016-05-20 14:15] LABS: BASOPHILS % (AUTO) 0.2 % (0-3); EOSINOPHILS % (AUTO) 1.8 % (0-5); MONOCYTES % (AUTO) 6.9 % (4-12); Mean Corpuscular Hemoglobin 29.5 pg (27.0-35.0); Mean Corpuscular Volume 91.1 fL (81-100); NEUTROPHILS % (AUTO) 63.1 % (40-74); Platelet Count 339 bil/L (150-400)
[2016-05-20] MEDS ORDERED: Ondansetron 2 mg/mL 2 mL Inj IVPUSH PRN ×2 (14:50→16:45)
[2016-05-20] MEDS ORDERED: Alum-Mag Hydrox-Simeth 30 mL Suspension PO PRN ×2 (14:50→16:45)
[2016-05-20 14:51] LABS: Magnesium 1.9 mg/dL (1.6-2.6)
--- NOTE | 2016-05-20 14:53 | DRSVH ---
PROCEDURE: CT BRAIN WITHOUT CONTRAST ([id number]) INDICATIONS: seizure TECHNIQUE: Noncontrast 4.5 mm thick angled axial sections acquired from the foramen magnum to the vertex, with c oronal reformats. COMPARISON: [facility], MR, BRAIN W/O CONTRAST, 10/01/2011, 9:46. FINDINGS: Image quality: Excellent. CSF spaces: Basal cisterns are patent. No extra-axial fluid collections. Ventricles are normal in size and shape. Brain: No midline shift. No intracranial masses or hemorrhage. Felix-white matter interface is norm al. Skull and face: Calvarium and visualized facial bones are intact, without suspicious lesions. Sinuses: Visualized sinuses and mastoids are clear. IMPRESSION: Seizure activity source is not found, no trauma identified. Depending on the clinical st atus followup by contrast enhanced MR scanning may be warranted. Dictated by: Miles Mooney M.D. on 05/20/2016 at 14:50 Approved by: Miles Mooney M.D. on 05/20/2016 at 14:51
--- NOTE | 2016-05-20 16:07 | NUR ---
Admission Pt arrived on [facility] [place] to rm [id number]. A/OX3, no complains of increased pain, blurred vision, dizziness, N/V. Pt able to stand and transfer self from stretcher to bed, steady on feet. Hieu (ROB) accompanied pt Oriented to call light and visiting hours.
[2016-05-20] MEDS ORDERED: Polyethylene Glycol (PEG) 17 Gm Powder PO PRN (16:45)
--- NOTE | 2016-05-20 16:55 | PCM.HPMED ---
Subjective Date of Service May 20, 2016 Primary Provider: Admitting Physician: Vy Lopez MD Primary Care Physician: Debora Servin PA-C Attending Physician: Vy Lopez MD Admit Status: From the Emergency Department, 23-Hour Observation Chief Complaint: New onset seizure History of Present Illness: This is a 28-year-old female who is 3 weeks post . It was normal vaginal delivery without any complicating her current morbidities during her . She does have a history of febrile seizure when she was 4 months old but none since. She did have a witnessed seizure about 1 PM the day sitting in a chair and be again to have generalized tonic-clonic motion lasted about 3 seconds. She was just watching TV. She did have a mild post ictal phase with some fatigue and confusion. Currently is not breast-feeding. She has had no fevers or chills. She notes she is in her usual state of health may be a little bit less sleep being a new mother. CT of head without contrast revealed no acute abnormalities. Review of Systems: All other review of systems are reviewed and are negative except for as in history of present illness Allergies Coded Allergies: Penicillins (Verified Allergy, Severe, rash, 05/20/16) vancomycin (Verified Allergy, Mild, POSSIBLE ALLERGY,ITCHING, 05/20/16) Sulfa (Sulfonamide Antibiotics) (Verified Allergy, Unknown, rash, 05/20/16) Home Medications None PMH Past Medical History Hx abscess Recent normal vaginal delivery approximately 3 weeks ago Family History No significant family medical history for seizure disorder Social History Hx Alcohol Use: No Hx Substance Use: No Hx Tobacco Use: No Smoking Status: Never Smoker Living Arrangement: with Family Exam Vital Signs Vital Sign - Last Date Time Temp Pulse Resp B/P Pulse Ox O2 Delivery O2 Flow Rate FiO2 05/20/16 16:13 36.6 89 18 121/86 100 Room Air Exam Constitutional: Female in no acute distress Head: Normocephalic atraumatic Eyes: PERRLA DC EOMI Mouth: No lesions Neck: No adenopathy Chest: Clear to auscultation Cor: Regular rate and rhythm S1-S2 Abdomen: Soft nontender bowel sounds present Extremities: No pedal edema Skin: No rashes Neuro: Alert and oriented 3, motor and sensory are intact bilaterally Lab and Diagnostics Labs Laboratory Tests 72 Hours Test 05/20/16 13:59 05/20/16 14:29 05/20/16 17:51 White Blood Count 12.9th/mm3 (3.8-10.1) Red Blood Count 4.03mil/mm3 (3.90-5.20) Hemoglobin 11.9g/dL (12.0-15.6) Hematocrit 36.7% (35.0-46.0) Mean Corpuscular Volume 91.1fL (81-100) Mean Corpuscular Hemoglobin 29.5pg (27.0-35.0) Mean Corpuscular Hemoglobin Concent 32.4% (32.0-37.0) Red Cell Distribution Width 12.1% (12.3-15.4) Platelet Count 339bil/L (150-400) Neutrophils (%) (Auto) 63.1% (40-74) Lymphocytes (%) (Auto) 27.6% (14-46) Monocytes (%) (Auto) 6.9% (4-12) Eosinophils (%) (Auto) 1.8% (0-5) Basophils (%) (Auto) 0.2% (0-3) Sodium Level 140mEq/L (134-144) Potassium Level 3.7mEq/L (3.5-5.2) Chloride Level 103mEq/L (97-108) Carbon Dioxide Level 21mmol/L (18-29) Blood Urea Nitrogen 7mg/dL (6-20) Creatinine 0.89mg/dL (0.57-1.00) Estimat Glomerular Filtration Rate 115mL/min (>59) Glucose Level 107mg/dL (60-99) Calcium Level 8.6mg/dL (8.5-10.1) Magnesium Level 1.9mg/dL (1.6-2.6) Total Bilirubin 0.2mg/dL (0.0-1.2) Aspartate Amino Transf (AST/SGOT) 20U/L (0-50) Alanine Aminotransferase (ALT/SGPT) 17U/L (0-32) Alkaline Phosphatase 97U/L (25-150) Total Protein 6.4g/dL (6.4-8.4) Albumin 3.9g/dL (3.4-5.0) Hold Puckett Top Tube Received (Received) Lactic Acid Level 2.3mmol/L (0.4-2.0) Thyroid Stimulating Hormone (TSH) 2.040uIU/mL (0.450-4.500) Free Thyroxine 1.20ng/dL (0.82-1.77) Result Diagram: 05/20/16 1359 05/20/16 1359 X-Rays, CTs and MRIs PROCEDURE: CT BRAIN WITHOUT CONTRAST ([id number]) INDICATIONS: seizure TECHNIQUE: Noncontrast 4.5 mm thick angled axial sections acquired from the foramen magnum to the vertex, with coronal reformats. COMPARISON: [facility], MR, BRAIN W/O CONTRAST, 10/01/2011, 9:46. FINDINGS: Image quality: Excellent. CSF spaces: Basal cisterns are patent. No extra-axial fluid collections. Ventricles are normal in size and shape. Brain: No midline shift. No intracranial masses or hemorrhage. Felix-white matter interface is normal. Skull and face: Calvarium and visualized facial bones are intact, without suspicious lesions. Sinuses: Visualized sinuses and mastoids are clear. IMPRESSION: Seizure activity source is not found, no trauma identified. Depending on the clinical status followup by contrast enhanced MR scanning may be warranted. Dictated by: Miles Mooney M.D. on 05/20/2016 at 14:50 Approved by: Miles Mooney M.D. on 05/20/2016 at 14:51 Vy Lopez MD May 20, 2016 16:55
[2016-05-20 18:06] LABS: APPEARANCE,URINE CLEAR (CLEAR,HAZY); COLOR,URINE YELLOW (YELLOW); OCCULT BLOOD,URINE SMALL (NEGATIVE); PH,URINE 6.5 (5.0-8.0); UROBILINOGEN,URINE NORMAL (NORMAL)
--- NOTE | 2016-05-20 18:30 | DRSVH ---
PROCEDURE: MRI SEIZURE BRAIN WITH AND WITHOUT CONTRAST ([id number]) INDICATIONS: seizure TECHNIQUE: Noncontrast axial T1 spin echo, axial T2 fast spin echo, sagittal and axial FLAIR, axial gradient ech o, axial diffusion and ADC, coronal thin-slice T2 FSE through the brain. Optional contrast, followed by axial and coronal 3D VIBE or T1 spin echo with fat saturation sequences through the brain. COMPARISON: [facility], CT, CT BRAIN WO CON, 05/20/2016, 14:34. [facility], MR, BRAIN W/O CONTRAST, 10/01/2011, 9:46. FINDINGS: Image quality: Excellent. CSF spaces: Ventricles are normal in size and shape. Basal cisterns are patent. No extra-axial flu id collections. Brain: No intracranial bleeds or mass effects. No abnormal intracranial enhancement. Felix-white ma tter interface appears intact. Diffusion weighted images demonstrate no acute ischemic insults. Bra instem appear normal. Normal intravascular flow voids are present. The hippocampal regions appear n ormal and symmetric in morphology. Skull and face: Calvarial marrow signal is normal. Orbits appear normal. Sinuses: Sinuses and mastoids are clear. IMPRESSION: Source of seizure activity is not seen, no trauma from recent seizure is found. Dictated by: Miles Mooney M.D. on 05/20/2016 at 18:28 Approved by: Miles Mooney M.D. on 05/20/2016 at 18:29
[2016-05-20] MEDS: 0.9% Sodium Chloride 1,000 ML IV SCH (18:43)
[2016-05-20] MEDS: Sodium Chloride LOK Flush 10 mL Syringe IVFLUSH SCH (18:44)
[2016-05-21] VITALS (7 sets, daily range): BP systolic 104–127; BP diastolic 65–78; PULSE 67–90; RESP 18; O2SAT 96–99
[2016-05-21] MEDS: 0.9% Sodium Chloride 1,000 ML IV SCH ×3 (02:21→18:39)
[2016-05-21] MEDS: Sodium Chloride LOK Flush 10 mL Syringe IVFLUSH SCH ×3 (02:22→16:45)
--- NOTE | 2016-05-21 03:36 | NUR ---
headache tylenol given in the beginning of shift for headache with good relief. Pt is able to sleep intermittently w/o further. No seizure activity noted. pt's son and spent the night with the pt.
[2016-05-21 07:50] LABS: BASOPHILS % (AUTO) 0.3 % (0-3); EOSINOPHILS % (AUTO) 3.2 % (0-5); MONOCYTES % (AUTO) 7.2 % (4-12); Mean Corpuscular Hemoglobin 29.4 pg (27.0-35.0); Mean Corpuscular Volume 92.7 fL (81-100); NEUTROPHILS % (AUTO) 52.7 % (40-74); Platelet Count 316 bil/L (150-400)
[2016-05-21] MEDS ORDERED: Influenza (Adult) Vaccine 0.5 mL Syringe IM ONE (08:30)
--- NOTE | 2016-05-21 14:16 | NUR ---
Social Work-screening: Data:EMR reviewed. Pt is a 20 y/o female who was admitted on 05/20/16 for seizure per H&P. Pt's insurance is [email or web address] and PCP is JAKY Stout. EMR Reviewed. Pt's readmission score is 1. Pt reside sat home with her where she remains independent with ADLs. Per RN notes, pt has been up independent in her room. No anticipated discharge needs. SW will continue to follow if needs arise. Assessment:Pt who is independent at baseline. Plan:Pt to discharge home when medically stable via POV. No anticipated discharge needs. SW will continue to follow if needs arise. JOSE Live
--- NOTE | 2016-05-21 15:17 | PCM.PNMED ---
Subjective Date of Service May 21, 2016 Subjective Patient is seen with her family. Pt's father in law reports that he witnessed the event. He states that at 12:30pm yesterday the patient was in her normal state of health, eating some chips. At 12:45pm, he reports that she began moaning and then her whole body became stiff and then began shaking. He also notes at this time she began drooling a brown blood-tinged liquid. He states that after a few minutes she got up suddenly and ran towards the bathroom and hit the wall with her shoulder. He states that she was very confused and did not know what was going on. He states at that time he called 911. He denies witnessing any episodes of urinary incontinence. He states that she stared at the family and recreation leader and did not know where she was what had happened. Patient reports that she has never had a seizure as an adult. She states she had a febrile seizure when she was 4 months old but has not had any issues since then. She denies any family history of seizures or seizure disorders. She denies any new medications or supplements. Patient does report that she gave to her child 3 weeks ago but denies any complications with delivery. She states that she was taking some iron supplements but recently discontinued. Patient reports that she has a very strong headache currently in the frontal region that is not radiating, she denies any photophobia or phonophobia. She denies any nausea or vomiting. She reports some continued confusion, she describes as a haziness. Patient states that the last thing she recalls was eating chips on her sofa and then being seen in the ER Exam Vital Signs Vital Sign - Last Date Time Temp Pulse Resp B/P Pulse Ox O2 Delivery O2 Flow Rate FiO2 05/21/16 06:00 36.7 67 18 110/73 99 Room Air Intake and Output 05/20/16 05/20/16 05/21/16 Cumulative From/Thru 15:00 23:00 07:00 05/20/16 16:42 - 05/21/16 06:03 Intake Total 1410 ml 1410 ml Balance 1410 ml 1410 ml Intake IV Total 1410 ml 1410 ml Exam General: No acute distress, well-developed, well-nourished, appropriately interactive HEENT: Normocephalic, atraumatic. External ears without defect. Pupils equal, round, and reactive to light and accommodation. Moist conjunctivae. Oropharynx with moist mucosa. Neck: Supple with full range of motion.No lymphadenopathy Cardiovascular: Regular rate and rhythm with no murmurs, rubs, or gallops appreciated Pulmonary: Clear to auscultation bilaterally with no crackles, wheezes, or rhonchi. Normal respiratory effort with no use of accessory muscles. Abdomen: Bowel tones present. Soft, nontender, nondistended. Extremities: No clubbing, cyanosis, edema, appreciated. Skin: Normal temperature, turgor, and texture; no rash, ulcers, or subcutaneous nodules appreciated. Neurological: Cranial nerves grossly intact. Normal muscle strength, tone, and bulk. Reflexes, coordination, and sensory function within normal limits. No known gait impairment. Psychiatric: Normal mood and affect. Alert and oriented to person, place, and time. IVs and Medications Medications Reviewed: Medications were reviewed in detail Lab and Diagnostics Result Diagram: 05/20/16 1359 05/20/16 5730 X-Rays, CTs and MRIs PROCEDURE: CT BRAIN WITHOUT CONTRAST ([id number]) INDICATIONS: seizure TECHNIQUE: Noncontrast 4.5 mm thick angled axial sections acquired from the foramen magnum to the vertex, with coronal reformats. COMPARISON: [facility], MR, BRAIN W/O CONTRAST, 10/01/2011, 9:46. FINDINGS: Image quality: Excellent. CSF spaces: Basal cisterns are patent. No extra-axial fluid collections. Ventricles are normal in size and shape. Brain: No midline shift. No intracranial masses or hemorrhage. Felix-white matter interface is normal. Skull and face: Calvarium and visualized facial bones are intact, without suspicious lesions. Sinuses: Visualized sinuses and mastoids are clear. IMPRESSION: Seizure activity source is not found, no trauma identified. Depending on the clinical status followup by contrast enhanced MR scanning may be warranted. Dictated by: Miles Mooney M.D. on 05/20/2016 at 14:50 Approved by: Miles Mooney M.D. on 05/20/2016 at 14:51 PROCEDURE: MRI SEIZURE BRAIN WITH AND WITHOUT CONTRAST ([id number]) INDICATIONS: seizure TECHNIQUE: Noncontrast axial T1 spin echo, axial T2 fast spin echo, sagittal and axial FLAIR, axial gradient echo, axial diffusion and ADC, coronal thin-slice T2 FSE through the brain. Optional contrast, followed by axial and coronal 3D VIBE or T1 spin echo with fat saturation sequences through the brain. COMPARISON: [facility], CT, CT BRAIN WO CON, 05/20/2016, 14:34. [facility], MR, BRAIN W/O CONTRAST, 10/01/2011, 9:46. FINDINGS: Image quality: Excellent. CSF spaces: Ventricles are normal in size and shape. Basal cisterns are patent. No extra-axial fluid collections. Brain: No intracranial bleeds or mass effects. No abnormal intracranial enhancement. Felix-white matter interface appears intact. Diffusion weighted images demonstrate no acute ischemic insults. Brainstem appear normal. Normal intravascular flow voids are present. The hippocampal regions appear normal and symmetric in morphology. Skull and face: Calvarial marrow signal is normal. Orbits appear normal. Sinuses: Sinuses and mastoids are clear. IMPRESSION: Source of seizure activity is not seen, no trauma from recent seizure is found. Dictated by: Miles Mooney M.D. on 05/20/2016 at 18:28 Approved by: Miles Mooney M.D. on 05/20/2016 at 18:29 Assessment & Plan 1. Acute generalized tonic-clonic seizure with unknown etiology and no prior history of seizures, present on admission, ongoing -CT and MRI of brain was normal, and did not demonstrate a current explanation for the seizure -No personal history of seizure disorder, no family history, no new medications , no recent trauma noted -Pt does endorse history of viral meningitis, but reports she does not feel ill , only hazy. -Review of labs does not demonstrate a cause( TSH 2.04, mag 1.9,normal glucose, normal calcium) -Pt had elevated Lactic acid on admission which normalized -Other possible causes include infectious- UA did demonstrate small LE,culture results pending. -Pt has reduced seizure threshold secondary to being . -Spoke with Dr De Leon of Neurology, who recommended IR guided lumbar puncture and EEG 2. S/P 3 weeks ago -Pt is not -No new medication following other than Fe supplementation -Patient has been caring for her child in the room, with significant support from family. Dispo: Dependent upon results of LP and EEG. VTE Prophylaxis: SCDs Resuscitation Status: CPR: Attempt Resuscitation Attending Statement The patient was seen and examined together with Dr. Pop on 05/21/2016 and I agree with the history, exam and plan as outlined in the note above. copies to: Diaz Noriega MD, Tara L DO May 21, 2016 07:01 David Porter MD May 22, 2016 10:25
--- NOTE | 2016-05-21 15:33 | NUR ---
LP/EEG Lumbar puncture completed by anesthesiology in the room. 4 vials of CSF were collected, labeled and sent the lab. Pt reported a headache at completion of LP. Pt was assist back to bed for completion of EEG. Call light in place. will continue to monitor,
[2016-05-21 17:38] LABS: APPEARANCE,CSF CLEAR (CLEAR); COLOR,CSF COLORLESS (COLORLESS); WHITE BLOOD CELL,CSF 0 /mm3 (0-5)
--- NOTE | 2016-05-21 21:43 | PROCED ---
[address] [address] PROCEDURE NOTE PATIENT: TON KOEHLER : 1995 MR#: [id number] ADMIT: 05/20/2016 JOB ID: [id number] DATE OF SERVICE: POSTOPERATIVE DIAGNOSIS(ES): PREOPERATIVE DIAGNOSIS(ES): SURGEON: Tyler Dao MD I was called by the hospitalist service to do a spinal tap for a history of 1st seizure. Prior to beginning the procedure, I obtained written consent from the patient and reviewed her chart. Significant for normal platelets and MRI and CT head consistent with normal intracranial pressures. Patient at baseline denied any current headache. She denied taking any blood thinning medications and chart was reviewed to ensure that she had received no blood thinning medications. The patient was positioned in sitting. Her back was cleaned using iodine. Full back drape was placed. Full sterile precautions were utilized. I localized her skin with 1% lidocaine at the L3-L4 interspace using the provided Begum needle. I entered CSF on my 1st pass, 1st collecting an ICP pressure which was elevated at 32 mmHg. I then collected four samples in sequence. CSF was not blood-tinged, four samples. About 3 mL per sample were collected. The Begum needle was then withdrawn from the patient. A Band-Aid was placed. At the termination of the procedure, the patient did acknowledge a headache. When she was rested back in bed, the headache resolved. I advised the patient that the headache should resolve most likely within the morning. The nurse and the patient were both advised to let Anesthesia be aware if the headache does not resolve within 1-2 days and that she should be well hydrated and if it was contraindicated to have caffeinated beverages. There were no apparent complications other than this headache to the procedure. She tolerated the procedure well. Thank you for this consult.
--- NOTE | 2016-05-21 21:51 | PROCED ---
[address] [address] EEG PATIENT: TON KOEHLER : 1995 MR#: [id number] ADMIT: 05/20/2016 JOB ID: [id number] DATE: 05/21/2016 HISTORY: The patient is a 20-year-old woman three weeks who had an episode of loss of consciousness. No tongue or lip biting or loss of control of her urine. No history of head injury. She had febrile seizures when she was 4 months old. There is no family history of any neurologic disorders. TECHNICAL DESCRIPTION: This digital EEG was recorded using 21 scalp and ear, and two EKG electrodes. It was reviewed in bipolar and referential montages following reformatting in the [employer] System. During the recording, the patient was noted to be awake, drowsy, and asleep. The background was composed of a symmetrical 9-10 hertz, 10-20 microvolt symmetrical and reactive posterior dominant rhythm that attenuated with eye opening. The rest of the background was composed of low voltage faster frequencies. There were no focal, lateralized, or epileptiform discharges noted. There were no seizures seen. Hyperventilation was not performed. Patient deferred. Photic stimulation from 1-30 hertz did not elicit any photic driving response. Sleep was characterized by the attenuation of the alpha rhythm and the appearance of symmetrical vertex waves, heralding stage 1 of sleep. This was followed by the development of symmetrical sleep spindles and K complexes, heralding stage 2 of sleep. There were generalized bursts of high-amplitude delta activity associated with arousals. These may represent drowsy bursts. One such episode lasted for 7 seconds and was characterized by generalized high amplitude delta waves. There was no apparent clinical correlation although it should be noted that the patient was looking to the right (away from the camera) during this episode and thus we are not able to see if there were any facial changes associated with this episode. There does appear to be an episode of a generalized burst of high amplitude delta followed by eye opening. Although at times sharply contoured, these bursts of generalized high-amplitude delta do not appear to be clearly epileptiform in nature and may represent drowsy bursts. There were no seizures seen. There were no focal or lateralized abnormalities appreciated. There were no epileptiform discharges noted. The EKG rhythm strip revealed a heart rate of 60 to 80 beats per minute with no apparent arrhythmias. IMPRESSION: This EEG performed in the awake, drowsy, and asleep states is within normal limits. Given the appearance of the intermittent generalized bursts of high-amplitude delta, at times sharply contoured, recommend a repeat electroencephalogram. Clinical correlation is advised. MTDD
[2016-05-22] VITALS (10 sets, daily range): BP systolic 115–136; BP diastolic 65–87; PULSE 69–94; RESP 16–24; O2SAT 97–99
[2016-05-22] MEDS: Sodium Chloride LOK Flush 10 mL Syringe IVFLUSH SCH ×3 (00:45→16:32)
[2016-05-22] MEDS: 0.9% Sodium Chloride 1,000 ML IV SCH ×2 (02:39→10:41)
--- NOTE | 2016-05-22 05:24 | NUR ---
Uneventful night Patient reported headache around 8pm, 05/24, Tylenol effective. Slept through the night. Patient's sig. other in room, attentive to patient and their baby. IV fluid infusing per MD order. Vital signs stable. Using call light appropriately for needs, intentional rounding in place.
[2016-05-22 06:46] LABS: BASOPHILS % (AUTO) 0.3 % (0-3); EOSINOPHILS % (AUTO) 4.1 % (0-5); MONOCYTES % (AUTO) 7.4 % (4-12); Mean Corpuscular Hemoglobin 29.8 pg (27.0-35.0); Mean Corpuscular Volume 93.1 fL (81-100); NEUTROPHILS % (AUTO) 54.4 % (40-74); Platelet Count 262 bil/L (150-400)
--- NOTE | 2016-05-22 10:51 | NUR ---
Social Work-readiness for discharge: Data:EMR Reviewed. Pt is on day 2 of hospitalization for seizure per H&P. Per MD, pt is not medically stable at this time, MD anticipates tomorrow. Pt to have repeat EEG today and be started on medication today. Pt has been up independent in her room. No anticipated discharge needs. SW will continue to follow if needs arise. Assessment:Pt who is independent at baseline. Plan:Pt to discharge home when medically stable. No anticipated discharge needs. SW will continue to follow if needs arise. JOSE Live
--- NOTE | 2016-05-22 11:57 | NUR ---
IV Fluids D/Cd Patient complained of having to urinate frequently. Patient had NS infusing at 125mL/Hr. Fluid and rate was mentioned to MD and Fluids were discontinued.
[2016-05-22] MEDS ORDERED: levETIRAcetam Inj 1,000 MG in IV Premix 1 EACH IV ONE (15:15)
--- NOTE | 2016-05-22 15:17 | PCM.PNMED ---
Subjective Date of Service May 22, 2016 Subjective Patient reports that she is fatigued at this morning. She reports that she continues to have a headache in the frontal area, but does report that it is slightly improved from the previous day. Patient denies any visual changes. Patient's family reports that she has been having some difficulty with short- term memory loss, not remembering things that happened earlier in the morning or overnight. Patient and her family continues to deny any family history of neurological disorders or diseases. Exam Vital Signs Vital Sign - Last Date Time Temp Pulse Resp B/P Pulse Ox O2 Delivery O2 Flow Rate FiO2 05/22/16 09:35 36.9 84 18 115/74 97 Room Air Intake and Output 05/21/16 05/21/16 05/22/16 Cumulative From/Thru 15:00 23:00 07:00 05/20/16 16:42 - 05/22/16 06:20 Intake Total 910 ml 1036 ml 2872 ml 6228 ml Output Total 550 ml 725 ml 1350 ml 2625 ml Balance 360 ml 311 ml 1522 ml 3603 ml Intake Oral 910 ml 1036 ml 433 ml 2379 ml IV Total 2439 ml 3849 ml Output Urine Total 550 ml 725 ml 1350 ml 2625 ml Exam General: No acute distress, well-developed, well-nourished, appropriately interactive HEENT: Normocephalic, atraumatic. External ears without defect. Pupils equal, round, and reactive to light and accommodation. Moist conjunctivae. Oropharynx with moist mucosa. Neck: Supple with full range of motion.No lymphadenopathy Cardiovascular: Regular rate and rhythm with no murmurs, rubs, or gallops appreciated Pulmonary: Clear to auscultation bilaterally with no crackles, wheezes, or rhonchi. Normal respiratory effort with no use of accessory muscles. Abdomen: Bowel tones present. Soft, nontender, nondistended. Extremities: No clubbing, cyanosis, edema, appreciated. Skin: Normal temperature, turgor, and texture; no rash, ulcers, or subcutaneous nodules appreciated. Psychiatric: Normal mood and affect. Alert and oriented to person, place, and time. IVs and Medications Medications Reviewed: Medications were reviewed in detail Lab and Diagnostics Result Diagram: 05/22/16 0559 05/22/16 0559 X-Rays, CTs and MRIs PROCEDURE: CT BRAIN WITHOUT CONTRAST ([id number]) INDICATIONS: seizure TECHNIQUE: Noncontrast 4.5 mm thick angled axial sections acquired from the foramen magnum to the vertex, with coronal reformats. COMPARISON: [facility], MR, BRAIN W/O CONTRAST, 10/01/2011, 9:46. FINDINGS: Image quality: Excellent. CSF spaces: Basal cisterns are patent. No extra-axial fluid collections. Ventricles are normal in size and shape. Brain: No midline shift. No intracranial masses or hemorrhage. Felix-white matter interface is normal. Skull and face: Calvarium and visualized facial bones are intact, without suspicious lesions. Sinuses: Visualized sinuses and mastoids are clear. IMPRESSION: Seizure activity source is not found, no trauma identified. Depending on the clinical status followup by contrast enhanced MR scanning may be warranted. Dictated by: Miles Mooney M.D. on 05/20/2016 at 14:50 Approved by: Miles Mooney M.D. on 05/20/2016 at 14:51 PROCEDURE: MRI SEIZURE BRAIN WITH AND WITHOUT CONTRAST ([id number]) INDICATIONS: seizure TECHNIQUE: Noncontrast axial T1 spin echo, axial T2 fast spin echo, sagittal and axial FLAIR, axial gradient echo, axial diffusion and ADC, coronal thin-slice T2 FSE through the brain. Optional contrast, followed by axial and coronal 3D VIBE or T1 spin echo with fat saturation sequences through the brain. COMPARISON: [facility], CT, CT BRAIN WO CON, 05/20/2016, 14:34. [facility], MR, BRAIN W/O CONTRAST, 10/01/2011, 9:46. FINDINGS: Image quality: Excellent. CSF spaces: Ventricles are normal in size and shape. Basal cisterns are patent. No extra-axial fluid collections. Brain: No intracranial bleeds or mass effects. No abnormal intracranial enhancement. Felix-white matter interface appears intact. Diffusion weighted images demonstrate no acute ischemic insults. Brainstem appear normal. Normal intravascular flow voids are present. The hippocampal regions appear normal and symmetric in morphology. Skull and face: Calvarial marrow signal is normal. Orbits appear normal. Sinuses: Sinuses and mastoids are clear. IMPRESSION: Source of seizure activity is not seen, no trauma from recent seizure is found. Dictated by: Miles Moonye M.D. on 05/20/2016 at 18:28 Approved by: Miles Mooney M.D. on 05/20/2016 at 18:29 Additional Diagnostics IMPRESSION: This EEG performed in the awake, drowsy, and asleep states is within normal limits. Clinical correlation is advised. Matias De Leon MD 05/21/16 1810 Assessment & Plan 1. Acute generalized tonic-clonic seizure with unknown etiology and no prior history of seizures, present on admission, ongoing -CT and MRI of brain was normal, and did not demonstrate a current explanation for the seizure -No personal history of seizure disorder, no family history of seizures or any neurologic disorders, no new medications, no recent trauma noted -Pt does endorse history of viral meningitis, but reports she does not feel ill , only hazy. -Review of labs does not demonstrate a cause( TSH 2.04, mag 1.9,normal glucose, normal calcium) -Pt had elevated Lactic acid on admission which normalized -Other possible causes include infectious - UA with mixed urogenital bandar, no infection. -Pt has reduced seizure threshold secondary to being . -Per Dr De Leon's recommendation(Neurology), pt had lumbar puncture and EEG -LP with opening pressure of 32( mildly elevated), total protein 15, glucose 60 , cultures pending -EEG was normal, but Dr De Leon noted concern regarding a prolonged drowsy burst , and requested a repeat EEG. -Dr De Leon also recommended starting the patient on Keppra 500mg BID following the results of the second EEG, and pt to avoid driving for 6 months. He will see her in f.u 2. S/P 3 weeks ago -Pt is not -No new medication following other than Fe supplementation -Patient has been caring for her child in the room, with significant support from family. Dispo: Awaiting second EEG results VTE Prophylaxis: SCDs Resuscitation Status: CPR: Attempt Resuscitation Attending Statement The patient was seen and examined together with Dr. Pop on 05/22/2016 and I agree with the history, exam and plan as outlined in the note above. Julia Pop DO May 22, 2016 10:26 David Porter MD May 23, 2016 10:16
--- NOTE | 2016-05-22 20:46 | NUR ---
MUSCLE TWITCHING p:Observed upper and lower muscle twitching in extremities while taking vital signs. Patient also complaining of severe headache and dizziness. i:Placed patient in inverted supine position. Continued to monitor patient. This occurrence lasted up to 2 min with 5 pronounced muscle contractility resulting in "jumpy" limbs. Headache rated at a 6/10 (previous headaches rated at 2/10) in eyes and upper head. patient denies pain in the back of the neck. reduced lighting in room. Offered ice or heat and patient refused. gave patient 400 mg ibuprofen. e:patient reported to primary nurse that headache pain has decreased. no further muscle twitching (ie "jumping" limbs) observed. Patient has not ambulated to be reevaluated for dizziness. s:Bed in low position and locked. side rails x3 with seizure padding. Pt wearing nonskid socks and call light within reach. Patient instructed to not get up without assistance from staff. Addendum: 05/22/16 at 2116 by ISAIAH MARTE RN As primary RN, I agree with the note above. Evans RODRIGUEZ at 1930 reporting episode. Resident MD's came up to assess patient. No new orders besides the PRN Ibuprofen for headache, effective. Patient's family has left for the evening. Seizure pads in place, bed alarm on, call light within reach, intentional rounding, and remote telemetry on patient for close observation and safety.
[2016-05-23] MEDS: Sodium Chloride LOK Flush 10 mL Syringe IVFLUSH SCH ×2 (01:05→07:53)
[2016-05-23 01:09] VITALS: BP 96/56; PULSE 87; RESP 20; O2SAT 97
[2016-05-23 02:43] VITALS: BP 97/60; PULSE 79
--- NOTE | 2016-05-23 03:22 | NUR ---
Gas Utility Worker tech reported at 309 that patient had ten beats V-tach. Patient is sleeping and seems to be asymptomatic. paged at 311, called back and reported that he put in orders for some labs and a small NS bolus (BP has decreased). Will continue to monitor.
[2016-05-23] MEDS ORDERED: 0.9% Sodium Chloride 500 ML IV ONE (03:25)
[2016-05-23 04:56] LABS: BASOPHILS % (AUTO) 0.2 % (0-3); EOSINOPHILS % (AUTO) 5.3 % (0-5); MONOCYTES % (AUTO) 8.3 % (4-12); Mean Corpuscular Hemoglobin 29.9 pg (27.0-35.0); Mean Corpuscular Volume 91.9 fL (81-100); NEUTROPHILS % (AUTO) 50.1 % (40-74); Platelet Count 280 bil/L (150-400)
[2016-05-23 05:22] LABS: Magnesium 1.7 mg/dL (1.6-2.6)
[2016-05-23 05:45] VITALS: BP 104/67; PULSE 69; RESP 18; O2SAT 98
[2016-05-23] MEDS: levETIRAcetam 500 mg Tablet PO SCH ×2 (07:51→07:53)
[2016-05-23 08:00] VITALS: PULSE 91
[2016-05-23 10:07] VITALS: BP 111/69; PULSE 82; RESP 18; O2SAT 98
[2016-05-23] MEDS ORDERED: KEP500TA PO (13:43)
--- NOTE | 2016-05-23 14:02 | PCM.DIMED ---
Julia Pop Pepper DO 05/23/16 1344: Discharge Instructions Date of Service May 23, 2016 Dates of Hospitalization May 20, 2016 at 15:29 Discharge Diagnosis Discharge Diagnosis 1. Acute generalized tonic-clonic seizure Medication Instructions You have a seizure disorder, we are starting you on a medication called Keppra, and you will need to take this tablet twice a day. I also want to follow up with the neurologist, Dr. De Leon. [facility] (click on location for a map, directions and more information) [address] [place] [address] Hours: Friday - Friday 8 a.m. - 5 p.m. I also recommend that you follow up with Dr. Bauman regarding this new diagnosis and current hospitalization Test Results Your EEG demonstrated you have a seizure disorder. Diet No restrictions Activity Other (No driving for 6 months) Call your provider Fever or Chills, Shortness of breath, Bleeding, Chest pain, Vomitting, Excessive diarrhea, Weakness (unilateral), Other (seizure) Patient Instructions You have a seizure disorder, we are starting you on a medication called Keppra, and you will need to take this tablet twice a day. I also want to follow up with the neurologist, Dr. De Leon. [facility] (click on location for a map, directions and more information) [address] [place] [address] Hours: Friday - Friday 8 a.m. - 5 p.m. I also recommend that you follow up with Dr. Bauman regarding this new diagnosis and current hospitalization Follow-up Provider: Matias De Leon MD Follow-up with PCP in: 1 week Provider: Diaz Noriega MD Follow-up in: 1 week David Porter MD 05/24/16 1205: Julia Pop DO May 23, 2016 13:44 David Porter MD May 24, 2016 12:05
[2016-05-23 14:05] VITALS: BP 122/70; PULSE 87; RESP 18; O2SAT 97
--- NOTE | 2016-05-23 14:41 | NUR ---
Social Work: Discharge Data: Pt is on day 3 of hospitalization. EMR reviewed, d/c orders are in. No d/c planning needs identified at this time. PROMOTIONS SPECIALIST will continue to follow if needs arise. Assessment: Pt who is independent at baseline. Plan: Pt will d/c home via POV today. No d/c planning needs identified at this time. PROMOTIONS SPECIALIST will continue to follow if needs arise. JOSE Rosario
--- NOTE | 2016-05-23 14:49 | NUR ---
Discharge Patient given discharge orders. Patient given medication list with written and verbal instructions when to take next dose. Patient given hard copy of prescription. Patient given informational packet. Patient IV removed fully intact and asymptomatic. Follow up instructions given. Patient left with all personal belongings. Patient wheeled to main entrance by student nurse.
--- NOTE | 2016-05-23 20:45 | PCM.DC.MED ---
Discharge Summary Date of Service May 23, 2016 Dates of Hospitalization Date of Hospital Admission May 20, 2016 at 15:29 Date of Discharge: May 23, 2016 Providers: Admitting Physician: Vy Lopez MD Primary Care Physician: Debora Servin PA-C Attending Physician: Vy Lopez MD Diagnosis at Time of Discharge Diagnosis at Time of Discharge 1. Acute generalized tonic-clonic seizure with unknown etiology and no prior history of seizures 2. S/P 3 weeks ago Consultations Neurology- Consulted by phone Procedures XRay, CTs & MRIs PROCEDURE: CT BRAIN WITHOUT CONTRAST ([id number]) INDICATIONS: seizure TECHNIQUE: Noncontrast 4.5 mm thick angled axial sections acquired from the foramen magnum to the vertex, with coronal reformats. COMPARISON: [facility], MR, BRAIN W/O CONTRAST, 10/01/2011, 9:46. FINDINGS: Image quality: Excellent. CSF spaces: Basal cisterns are patent. No extra-axial fluid collections. Ventricles are normal in size and shape. Brain: No midline shift. No intracranial masses or hemorrhage. Felix-white matter interface is normal. Skull and face: Calvarium and visualized facial bones are intact, without suspicious lesions. Sinuses: Visualized sinuses and mastoids are clear. IMPRESSION: Seizure activity source is not found, no trauma identified. Depending on the clinical status followup by contrast enhanced MR scanning may be warranted. Dictated by: Miles Mooney M.D. on 05/20/2016 at 14:50 Approved by: Miles Mooney M.D. on 05/20/2016 at 14:51 PROCEDURE: MRI SEIZURE BRAIN WITH AND WITHOUT CONTRAST ([id number]) INDICATIONS: seizure TECHNIQUE: Noncontrast axial T1 spin echo, axial T2 fast spin echo, sagittal and axial FLAIR, axial gradient echo, axial diffusion and ADC, coronal thin-slice T2 FSE through the brain. Optional contrast, followed by axial and coronal 3D VIBE or T1 spin echo with fat saturation sequences through the brain. COMPARISON: [facility], CT, CT BRAIN WO CON, 05/20/2016, 14:34. [facility], MR, BRAIN W/O CONTRAST, 10/01/2011, 9:46. FINDINGS: Image quality: Excellent. CSF spaces: Ventricles are normal in size and shape. Basal cisterns are patent. No extra-axial fluid collections. Brain: No intracranial bleeds or mass effects. No abnormal intracranial enhancement. Felix-white matter interface appears intact. Diffusion weighted images demonstrate no acute ischemic insults. Brainstem appear normal. Normal intravascular flow voids are present. The hippocampal regions appear normal and symmetric in morphology. Skull and face: Calvarial marrow signal is normal. Orbits appear normal. Sinuses: Sinuses and mastoids are clear. IMPRESSION: Source of seizure activity is not seen, no trauma from recent seizure is found. Dictated by: Miles Mooney M.D. on 05/20/2016 at 18:28 Approved by: Miles Mooney M.D. on 05/20/2016 at 18:29 Other Diagnostics IMPRESSION: This EEG performed in the awake, drowsy, and asleep states is within normal limits.Clinical correlation is advised. Matias De Leon MD 05/21/16 1810 Brief History 20 yr old female who is 3 weeks post presents with complaint of seizure. Patient reports that her was uncomplicated and had a normal vaginal delivery. Patient is seen with her family. Pt's father in law reports that he witnessed the event. He states that at 12:30pm yesterday the patient was in her normal state of health, eating some chips. At 12:45pm, he reports that she began moaning and then her whole body became stiff and then began shaking. He also notes at this time she began drooling a brown blood-tinged liquid. He states that after a few minutes she got up suddenly and ran towards the bathroom and hit the wall with her shoulder. He states that she was very confused and did not know what was going on. He states at that time he called 911. He denies witnessing any episodes of urinary incontinence. He states that she stared at the family and accounting manager cpa and did not know where she was what had happened. Patient reports that she has never had a seizure as an adult. She states she had a febrile seizure when she was 4 months old but has not had any issues since then. She denies any family history of seizures or seizure disorders. She denies any new medications or supplements. Patient does report that she gave to her child 3 weeks ago but denies any complications with delivery. She states that she was taking some iron supplements but recently discontinued. Patient reports that she has a very strong headache currently in the frontal region that is not radiating, she denies any photophobia or phonophobia. She denies any nausea or vomiting. She reports some continued confusion, she describes as a haziness. Patient states that the last thing she recalls was eating chips on her sofa and then being seen in the ER Hospital Course 1. Acute generalized tonic-clonic seizure, due to newly diagnosed( this hospitalization) seizure disorder. -CT and MRI of brain was normal, and did not demonstrate a current explanation for the seizure -No personal history of seizure disorder, no family history of seizures or any neurologic disorders, no new medications, no recent trauma noted. Only reported febrile seizure at 4 months old -Pt reported history of viral meningitis, but during hospitalization, did not feel ill. -Labs did not demonstrate a cause( TSH 2.04, mag 1.9,normal glucose, normal calcium) -Pt had elevated Lactic acid on admission which normalized - UA with mixed urogenital bandar, no infection. -Pt has reduced seizure threshold secondary to being . -Neurology was consulted, and Dr De Leon provided recommendations via phone, he did not see the patient in the hospital. -Per Dr De Leon's recommendation(Neurology), pt had lumbar puncture and EEG -LP with opening pressure of 32( mildly elevated), total protein 15, glucose 60 , cultures pending -First EEG was normal, but Dr De Leon noted concern regarding a prolonged drowsy burst, and requested a repeat EEG. -Repeat EEG demonstrated generalized epileptiform waves with 2-3hertz spikes. Dr De Leon stated that this was evidence the patient had a seizure disorder. -Pt received loading dose of Keppra 1000mg IV on 05/22/2016 -Pt started on Keppra 500mg BID, and received dose in hospital, with no reported adverse effects. -Pt discharged home on Keppra 500mg BID -Pt advised she cannot drive for at least 6 months. Also educated her of increased risk for repeat seizures. -Pt is to follow up with Dr De Leon in his outpatient clinic, in following 1-2 wks. 2. S/P 3 weeks ago -Pt is not -No new medication following other than Fe supplementation -Patient has been caring for her child in the room, with significant support from family. Exam Vital Signs (Last) Date Time Temp Pulse Resp B/P Pulse Ox O2 Delivery O2 Flow Rate FiO2 05/23/16 14:05 36.7 87 18 122/70 97 Room Air Exam General: No acute distress, well-developed, well-nourished, appropriately interactive HEENT: Normocephalic, atraumatic. External ears without defect. Pupils equal, round, and reactive to light and accommodation. Moist conjunctivae. Oropharynx with moist mucosa. Neck: Supple with full range of motion.No lymphadenopathy Cardiovascular: Regular rate and rhythm with no murmurs, rubs, or gallops appreciated Pulmonary: Clear to auscultation bilaterally with no crackles, wheezes, or rhonchi. Normal respiratory effort with no use of accessory muscles. Abdomen: Bowel tones present. Soft, nontender, nondistended. Extremities: No clubbing, cyanosis, edema, appreciated. Skin: Normal temperature, turgor, and texture; no rash, ulcers, or subcutaneous nodules appreciated. Psychiatric: Normal mood and affect. Alert and oriented to person, place, and time. Test 05/20/16 13:59 05/20/16 14:29 05/20/16 17:51 05/21/16 06:10 Hold Puckett Top Tube Received (Received) Thyroid Stimulating Hormone (TSH) 2.040uIU/mL (0.450-4.500) Free Thyroxine 1.20ng/dL (0.82-1.77) Urine Color Yellow (YELLOW) Urine Appearance Clear (CLEAR,HAZY) Urine pH 6.5 (5.0-8.0) Urine Specific Hugo 1.020 (1.003-1.035) Urine Protein Negativemg/dL (NEG,TRACE) Urine Glucose (UA) Negativemg/dL (NEGATIVE) Urine Ketones Negativemg/dL (NEGATIVE) Urine Occult Blood Small (NEGATIVE) Urine Nitrite Negative (NEGATIVE) Urine Bilirubin Negative (NEGATIVE) Urine Urobilinogen Normalmg/dL (NORMAL) Urine Leukocyte Esterase Small (NEGATIVE) Urine RBC 0-2/hpf (0-2) Urine WBC 0-5/hpf (0-5) Urine Epithelial Cells None/hpf (NONE-MOD) Urine Crystals None seen (NONE SEEN) Urine Bacteria Few/hpf (NONE-FEW) Urine Hyaline Casts None/lpf (NONE) Urine Granular Casts None seen (NONE SEEN) Urine Waxy Casts None seen (NONE SEEN) Urine Red Blood Cell Casts None seen (NONE SEEN) Urine White Blood Cell Casts None seen (NONE SEEN) Urine Mucus None seen (None Seen) Urine Trichomonas None seen (NONE SEEN) Urine Yeast None (NONE SEEN) Urinalysis Comment None Urine Culture Reflexed Indicated Urine Opiates Screen Negative Urine Methadone Screen Negative Urine Barbiturates Screen Negative Urine Amphetamines Screen Negative Urine Benzodiazepines Screen Negative Urine Cocaine Metabolite Screen Negative Urine Cannabinoids Screen Negative Lactic Acid Level 1.5mmol/L (0.4-2.0) Test 05/21/16 15:30 05/23/16 04:00 CSF Appearance Clear (CLEAR) CSF Color Colorless (COLORLESS) CSF WBC 0/mm3 (0-5) CSF RBC 0/mm3 CSF Mononuclear WBCs % CSF Polynuclear WBCs % CSF Other Cells CSF Glucose 60mg/dL (45-90) CSF Total Protein 15mg/dL (15-45) White Blood Count 8.9th/mm3 (3.8-10.1) Red Blood Count 3.71mil/mm3 (3.90-5.20) Hemoglobin 11.1g/dL (12.0-15.6) Hematocrit 34.1% (35.0-46.0) Mean Corpuscular Volume 91.9fL (81-100) Mean Corpuscular Hemoglobin 29.9pg (27.0-35.0) Mean Corpuscular Hemoglobin Concent 32.6% (32.0-37.0) Red Cell Distribution Width 12.0% (12.3-15.4) Platelet Count 280bil/L (150-400) Neutrophils (%) (Auto) 50.1% (40-74) Lymphocytes (%) (Auto) 35.9% (14-46) Monocytes (%) (Auto) 8.3% (4-12) Eosinophils (%) (Auto) 5.3% (0-5) Basophils (%) (Auto) 0.2% (0-3) Sodium Level 140mEq/L (134-144) Potassium Level 3.7mEq/L (3.5-5.2) Chloride Level 102mEq/L (97-108) Carbon Dioxide Level 25mmol/L (18-29) Blood Urea Nitrogen 7mg/dL (6-20) Creatinine 0.53mg/dL (0.57-1.00) Estimat Glomerular Filtration Rate 209mL/min (>59) Glucose Level 93mg/dL (60-99) Calcium Level 8.4mg/dL (8.5-10.1) Magnesium Level 1.7mg/dL (1.6-2.6) Total Bilirubin 0.2mg/dL (0.0-1.2) Aspartate Amino Transf (AST/SGOT) 16U/L (0-50) Alanine Aminotransferase (ALT/SGPT) 14U/L (0-32) Alkaline Phosphatase 97U/L (25-150) Total Protein 5.1g/dL (6.4-8.4) Albumin 3.4g/dL (3.4-5.0) Microbiology Results Specimen: [id number] Collected: 05/21/16-UNK Status: RES Req#: [id number] Received: 05/21/16 Source: CSF Sp Desc : Subm Dr: Rosamaria Myrick DO Ordered: FLDC CULT Comments: Collected by Nurse/Unit? Y/N Y Procedure Result Verified Site Microbiology ANA M GS (GRAM STAIN) Final 05/21/16 GRAM STAIN RESULT NO POLYS NO ORGANISMS SEEN ANA M CULT AEROBIC Preliminary 05/23/16-819 NO GROWTH AFTER 48 HOURS Held for further observation Discharge Medications Discharge Medications Levetiracetam (Keppra) 500 Mg Tablet 500 MG PO BID Prescribed by: ROSAMARIA MYRICK, DO Additional med instructions You have a seizure disorder, we are starting you on a medication called Keppra, and you will need to take this tablet twice a day. I also want to follow up with the neurologist, Dr. De Leon. [facility] (click on location for a map, directions and more information) [address] [place] [address] Hours: Friday - Friday 8 a.m. - 5 p.m. I also recommend that you follow up with Dr. Bauman regarding this new diagnosis and current hospitalization Followup Plan Disposition: Home with family Discharge Diet: No restrictions Discharge Activity: Other (No driving for 6 months) Patient Instructions You have a seizure disorder, we are starting you on a medication called Keppra, and you will need to take this tablet twice a day. I also want to follow up with the neurologist, Dr. De Leon. [facility] (click on location for a map, directions and more information) [address] [place] [address] Hours: Friday - Friday 8 a.m. - 5 p.m. I also recommend that you follow up with Dr. Bauman regarding this new diagnosis and current hospitalization Follow-up Provider: Matias De Leon MD Follow-up with PCP in: 1 week Provider: Diaz Noriega MD Follow-up in: 1 week Time spent 40 minutes Attending Statement The patient was seen and examined together with Dr. Myrick on 05/23/2016 and I agree with the history, exam and plan as outlined in the note above. copies to: Diaz Noriega MD; Matias De Leon MD, Tara L DO May 23, 2016 20:45 David Porter MD May 24, 2016 12:05
[2016-09-29] MEDS ORDERED: CITA40TA13 PO (18:34)
[2016-09-29] MEDS ORDERED: BUSP10TA2 PO (18:34)
[2016-09-29] MEDS ORDERED: DESO1TAB35 PO (18:34)
== END 2016-05-23 15:06 | disposition home or self-care (01) ==
LOC: SED 13:24 → MPC 15:29
PROVIDERS: ADMIT Specialist; ATTEND Specialist
DX: G40.89 Other seizures (principal); R00.0 Tachycardia, unspecified; D72.829 Elevated white blood cell count, unspecified; R74.0 Nonspecific elevation of levels of transaminase and lactic acid dehydrogenase [LDH]; Z98.890 Other specified postprocedural states; Z23 Encounter for immunization
CPT/HCPCS: 36415; 70450; 70553; 80053; 81000; 82945; 83605; 83735; 84155; 84439; 84443; 85025; 87070; 87086; 87088; 87205; 89051; 90471; 93005; 95816; 96374; 99291; A9585; G0378; G0480; J1953; J7030; J7040; Q2039

== ENCOUNTER 2016-05-25 20:01 | Emergency (ER) | payer OTHER ==
[~2016-05-25] VITALS: Ht 182.9 cm; Wt 104.5 kg
[~2016-05-25 20:01] MED LIST changes: -Ascorbic Acid PO; -FERR-74 PO; -IBUP800T28 PO; +KEP500TA PO; -PREN-12 PO
[2016-05-25 20:04] VITALS: BP 133/77; PULSE 91; RESP 16; O2SAT 98
[2016-05-25] MEDS ORDERED: TOPI25TA26 PO (20:14)
[2016-05-25] MEDS ORDERED: Ondansetron 8 mg ODT Tablet PO ONE (20:55)
[2016-05-25 21:12] LABS: BASOPHILS % (AUTO) 0.2 % (0-3); EOSINOPHILS % (AUTO) 1.4 % (0-5); MONOCYTES % (AUTO) 5.7 % (4-12); Mean Corpuscular Hemoglobin 29.7 pg (27.0-35.0); Mean Corpuscular Volume 90.2 fL (81-100); NEUTROPHILS % (AUTO) 68.5 % (40-74); Platelet Count 307 bil/L (150-400)
--- NOTE | 2016-05-25 21:33 | ED.REPORT ---
HPI-NVD Date of Service May 25, 2016 ED Provider: Lalo Barney MD Pt is a 20 y.o. female who presents to the ED c/o nausea and vomiting onset today. Pt reports associated hematemesis and positional migraine onset 3 days ago. 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 Pt's migraine is relieved when supine. Pt was admitted to the hospital on May 20 for a seizure work-up that included LP. She was discharged on May 23 with Topiramate. Her PCP instructed her to come into the ED if she developed nausea and vomiting while on the Topiramate. Nursing Notes Stated Complaint: THROWING UP BLOOD Chief Complaint: Female Abdominal Pain Nursing Notes Reviewed: Yes Allergies: Coded Allergies: Penicillins (Verified Allergy, Severe, rash, 05/25/16) vancomycin (Verified Allergy, Mild, POSSIBLE ALLERGY,ITCHING, 05/25/16) Sulfa (Sulfonamide Antibiotics) (Verified Allergy, Unknown, rash, 05/25/16) Scheduled Levetiracetam (Keppra) 500 Mg Tablet 500 MG PO BID Topiramate (Topamax) 25 Mg Tablet 25 MG PO DAILY Scheduled PRN Ondansetron ODT (Ondansetron ODT) 8 Mg Tab.rapdis 8 MG PO Q4H PRN PRN For Nausea General Time Seen by MD: 20:51 Chief Complaint Vomiting Hx Obtained From: Patient Arrived By: Walk-in Onset Occurred: 1 - 4 hours ago Context of Onset: New medication, Recent hospitalization Symptom Duration: Since onset Vomiting: Vomiting blood Quality: Painful Severity: Current: Severe Past Medical History Past Medical History Hx abscess Seizures Pt reports hx of Mer-Pop Past Surgical History Yes, unspecified Smoking History Never Smoker Ambulatory Status Independent Review of Systems GI: Reports: Hematemesis, Nausea, Vomiting Neurologic: Reports: Headache Complete sys rev & neg: except as marked. Physical Exam Initial Vital Signs Vital Signs (First) Date Time Temp Pulse Resp B/P Pulse Ox O2 Delivery O2 Flow Rate FiO2 05/25/16 20:04 36.3 91 16 133/77 98 Room Air Initial VS: Reviewed, Vital signs normal Head / Eyes: Atraumatic, Normocephalic Respiratory: Breath sounds normal, No respiratory distress Cardiovascular: Regular rate & rhythm, Intact distal pulses Extremities: Vascular intact, Neuro intact Skin: Warm, Dry, No cyanosis Psychiatric: Mood/affect normal, Behavior normal, Normal thought content General/Constitutional: Awake, Alert, No acute distress, Well developed, Well hydrated, Well nourished, Not toxic appearing Appears fatigued Abdomen: Atraumatic, Soft, Non-tender Neurologic: Oriented X3, Speech NL Interpretation & Diagnostics Lab Results Interpretation Result Diagram: 05/25/16 2100 05/25/16 2100 Test 05/25/16 20:30 05/25/16 21:00 Hold Urine Received (Received) White Blood Count 10.6th/mm3 (3.8-10.1) Red Blood Count 3.87mil/mm3 (3.90-5.20) Hemoglobin 11.5g/dL (12.0-15.6) Hematocrit 34.9% (35.0-46.0) Mean Corpuscular Volume 90.2fL (81-100) Mean Corpuscular Hemoglobin 29.7pg (27.0-35.0) Mean Corpuscular Hemoglobin Concent 33.0% (32.0-37.0) Red Cell Distribution Width 12.0% (12.3-15.4) Platelet Count 307bil/L (150-400) Neutrophils (%) (Auto) 68.5% (40-74) Lymphocytes (%) (Auto) 24.0% (14-46) Monocytes (%) (Auto) 5.7% (4-12) Eosinophils (%) (Auto) 1.4% (0-5) Basophils (%) (Auto) 0.2% (0-3) Sodium Level 141mEq/L (134-144) Potassium Level 4.2mEq/L (3.5-5.2) Chloride Level 104mEq/L (97-108) Carbon Dioxide Level 25mmol/L (18-29) Blood Urea Nitrogen 10mg/dL (6-20) Creatinine 0.63mg/dL (0.57-1.00) Estimat Glomerular Filtration Rate 171mL/min (>59) Glucose Level 88mg/dL (60-99) Calcium Level 8.9mg/dL (8.5-10.1) Magnesium Level 1.8mg/dL (1.6-2.6) Total Bilirubin 0.2mg/dL (0.0-1.2) Aspartate Amino Transf (AST/SGOT) 19U/L (0-50) Alanine Aminotransferase (ALT/SGPT) 19U/L (0-32) Alkaline Phosphatase 85U/L (25-150) Total Protein 6.2g/dL (6.4-8.4) Albumin 3.9g/dL (3.4-5.0) Lipase 21U/L (13-60) Hold Puckett Top Tube Received (Received) Lab Results Interpretation: CBC normal CMP normal Re-Eval/Medical Decision Med Decision/Clinical Course This is a 20-year-old female is chart indicates she is here for "vomiting up blood". However when I go talk to the patient the patient's complaining of what she says is a "migraine" headache. However she reports is different than headache she has had before, it is extraordinarily positional and severe she sits up or stands up, and resolves if she lies flat. She is just underwent a lumbar puncture given she presented with a new onset seizure earlier this week. She is discharged. As no she has had some nausea and vomiting, and after several episodes of vomiting did have a trace amount of blood, describes it amounts to a Mer-Pop type of presentation, which he has had before. She has had no large volume hematemesis, she has had no melena, no dyspepsia. Her actual main complaint to me is actually the headache, she has had no fever or infectious symptoms. She is afebrile, she is nontoxic but fatigued. Her abdomen soft nontender. All in all, the patient describes what sounds like a post dural puncture headache following the lumbar puncture performed for diagnostic purposes earlier this week. She received some Zofran for the nausea and had no episodes of emesis in the department. Anesthesia was consult contacted and agreed that" presentation was concerning, and performed a blood patch with immediate therapeutic relief. Patient was observed for an hour, did well. Remains asymptomatic and is being discharged. She has had no further nausea but I prescribed some ondansetron. I am finding no evidence of an unstable GI bleed or need for additional laboratory testing or management. I have reviewed Discharge precautions with the patient including procedural complications. She is discharged much improved condition Source of Hx: Old records Re-Evaluation/Progress : Time of Eval: 22:00 Re-Evaluation/Progress Note: Procedure performed by Dr. Noel. Consultation : Referral / Consult Name: Miles Noel MD Consulted With: Anesthesia Call Returned at: 21:48 Note: Discussed pt dx of post-dural puncture headache with Dr. Noel. He will perform procedure in ED. Differential Diagnosis: Positive: Mer-Pop syndrome, Negative: Acute gastroenteritis, Boerhaave syndrome, Crohn's disease, Diabetes mellitus, Drug overdose, Drug toxicity, Pancreatitis, Counseled Regarding: Diagnosis Discharge & Departure Impression: Primary Impression: Post-dural puncture headache Disposition: Home Discharge Condition All VS Reviewed: Yes Condition: Stable Additional Instructions: 1. You had symptoms that your headache called by a small CSF leak they can sometimes have some following a lumbar puncture. He therefore underwent a procedure called a blood patch performed by the anesthesiologist. 2. This usually fixes that for the problem. 3. Take it easy, no heavy exertion 4. Caffeine is actually encouraged for the next few days as it can also help with maintaining resolution. 5. Return to the emergency room again if new or worsening symptoms. 6. You can take ondansetron 8mg (let dissolve under the tongue) up to every 4 hours as needed for nausea. 7. Continue your Keppra (levitericetam). 8. If not already scheduled, call for an appointment with your primary care provider. Referrals: Debora Servin PA-C (PCP) Kimmy Attestation Portions of this note were transcribed by Carie Pina. I, Dr. Barney personally performed the history, physical exam and medical decision-making; I reviewed and confirmed the accuracy of the information in the transcribed note. Signed by: Kimmy Ocampo, 05/26/2016 and 0015. copies to: Debora Servin PA-C, Matthew F MD May 25, 2016 21:33 CARIE PINA May 25, 2016 21:44
[2016-05-25 21:37] LABS: Magnesium 1.8 mg/dL (1.6-2.6)
[2016-05-25] MEDS ORDERED: Promethazine Inj 25 MG in Dextrose 5%-Pha MIX 50 ML IV ONE (21:45)
[2016-05-25] MEDS ORDERED: 0.9% Sodium Chloride 1,000 ML IV ONE (21:45)
--- NOTE | 2016-05-25 22:25 | PCM.PROC ---
Procedure Note Date of Service: May 25, 2016 Pre Procedure Diagnosis: post dural puncture headache Post Procedure Diagnosis: post dural puncture headache Procedure: epidural blood patch Indication for Procedure: Post dural puncture headache following LP for isolated seizure episode. Procedure Details: The patient was positioned in the seated position. Chlorhexidine prep to the lumbar region and sterile drape was placed on the low back. Sterile technique was used throughout. Skin local with 1% lidocaine. Several, ~6 passes, made with 17g Tuohy were unsuccessful. A second epidural kit was opened and the back was reprepped and draped after the Tuohy stylet fell off the sterile field. The first pass with this new kit (~7th or 8th pass total) was successful by loss of resistance with saline. Simultaneously, the patient's existing R AC IV was disconnected from tubing, the angiocath hub was scrubbed with chlorhexidine and 20cc of the patient's blood was sterilely pulled into a syringe then connected sterilely to the Tuohy. Slow injection of all 20cc was well tolerated with minimal back discomfort. The patients headache intensity improved from 8 to 2 following the procedure. There were no immediate complications. Post Procedure Plan: Patient is to seek medical attention for symptoms of increasing back pain, fever , lower extremity numbness/weakness, loss of bowel or bladder continence. Otherwise no specific follow up is needed. She is encouraged to take over the counter analgesics, caffeine, and plenty of oral liquids to improve her symptoms. iMles Noel MD May 25, 2016 22:25
--- NOTE | 2016-05-25 22:27 | PCM.HPANE ---
Patient Data Date of Service: May 25, 2016 Surgeon Admitting Provider: Attending Provider: Primary Care Physician:Debora Servin PA-C Other Provider: Reason for Visit Throwing Up Blood Ht/WT & BMI Height (Feet): 6 Height (Inches): 0 Weight (Kilograms): 104.55 Body Mass Index Allergies Coded Allergies: Penicillins (Verified Allergy, Severe, rash, 05/25/16) vancomycin (Verified Allergy, Mild, POSSIBLE ALLERGY,ITCHING, 05/25/16) Sulfa (Sulfonamide Antibiotics) (Verified Allergy, Unknown, rash, 05/25/16) Past Anesthesia History Anesthesia History: Denies:: Abnormal Airway, Anesthesia Reactions, Difficult Intubation, Fam Anesthesia Reaction, Fam Malignant Hypertherm, Malignant Hyperthermia Diabetes History Hx Diabetes?: No MRSA MRSA: Yes Medications Active Scripts Levetiracetam (Keppra)500 Mg [id number] Mg PO BID #60 TABLET Prov:Julia Pop DO 05/23/16 Reported Medications Topiramate (Topamax)25 Mg [id number] Mg PO DAILY Ref 0 05/25/16 Discontinued Reported Medications Vit W-Ca,Fe,FA(<1 mg) ( Formula)1 Each Tablet1 Each PO DAILY 04/26/16 Discontinued Scripts [Ascorbic Acid] (Vitamin C)500 MG TABLET No Conflict [id number] Mg PO BIDWM #60 Prov:Diaz Noriega MD 04/29/16 Ibuprofen 800 Mg [id number] Mg PO Q6H PRN For Pain #14 TABLET Prov:Diaz Noriega MD 04/29/16 Ferrous Sulfate (Feosol)325 Mg [id number] Mg PO BIDWM #60 TABLET Prov:Diaz Noriega MD 04/29/16 History History of ENT Problems?: No HEENT History: Denies:: Abnormal Airway Cataracts Difficult Intubation Dysphagia Hearing Problem Sinus Problem TMJ Hx of Heart Problems?: No Cardiovascular History: Denies:: AICD Abdominal Aortic Aneurism Atrial Fibrillation Cardiac Surgery Chest Pain Congestive Heart Failure Edema Heart Murmur Hypertension Irregular Heartbeat Pacemaker Rheumatic Fever Thrombophlebitis Valvular Heart Disease Hx of Respiratory Problem?: No Respiratory History: Denies:: Asthma COPD Chest Surgery Cough Dyspnea Emphysema Hemoptysis Oxygen Administration Pneumonia Pulmonary Embolism Tuberculosis Use of C-PAP Machine Hx Neurologic Problems?: Yes Neurological History: Positive for:: Headaches Seizures Denies:: Alzheimer's Disease CVA Dementia Dizziness Multiple Sclerosis Parkinson's Disease Other History/Comments 2 days positional headache. Hx of GI Problems?: No Gastrointestinal History: Denies:: Cirrhosis Diverticulitis Gastroesphageal Reflux Gastrointestinal Bleeding Heartburn Hepatitis Hiatal Hernia Rectal Bleeding Hx of Problems?: No Genitourinary History: Positive for:: Urinary Tract Infection Denies:: HX of Hemodialysis Kidney Stones HX of Peritoneal Dialysis: No Female Hx: Denies:: Currently Endometriosis Pelvic Inflammatory Problems with Breasts? Skin History: Denies:: History Skin Disorders? Pressure Ulcers Hx Musculoskeletal Problems?: No Musculoskeletal History: Denies:: Back Injury Degenerative Joint Joint Replacement Musculoskeletal Trauma Systemic Lupus Hx of Psycho/Social Problems?: Yes (ADHD) Psycho Social History: Positive for:: Anxiety Hx Depression Denies:: Bipolar Disorder Suicide Attempt Hx Surgeries?: Yes (TONSILS, MRSA) Hx Any Other Health Problems?: No Other History: Positive for:: Hospitalization (Childbirth) Denies:: Cancer Endocrine Disease Thyroid Disease History Blood Transfusions: Denies:: Blood Transfuse Reaction Blood Transfusions Hx Diabetes: No Hx Alcohol Use: NoHx Substance Use: No Smoking Status: Never Smoker Have You Smoked inLast 12 mo: No Stop/Bang Risk Assessment Category Category 1A: Patient has history of documented sleep apnea, and HAS NOT received any narcotic, sedative or anesthesia administration during this stay. Category 1B: Patient has history of documented sleep apnea, and HAS received any narcotic , sedative or anesthesia administration during this stay Category 2: Patient has SUSPECTED Obstructive Sleep Apnea, and HAS received any narcotic , sedative or anesthesia administration during this stay. Category 3: Patient has SUSPECTED Obstructive Sleep Apnea and HAS NOT received narcotic, sedative or anesthesia administration during this stay. Category 4: Outpatient in Procedural Areas with known sleep apnea or who screen positive for High Risk via the STOP/BANG questionnaire. Exam Exam Vital Signs Vital Signs Date Time Temp Pulse Resp B/P Pulse Ox O2 Delivery O2 Flow Rate FiO2 05/25/16 20:04 36.3 91 16 133/77 98 Room Air Meds/Labs/Diagnostics Admission Meds Current Medications Ondansetron HCl (Zofran ODT) 8 mg ONCE ONCE PO Last administered on 05/25/16t 20:57; Start 05/25/16 at 20:55; Stop 05/25/16 at 20:56; Status DC Labs Test 05/25/16 20:30 05/25/16 21:00 Hold Urine Received (Received) White Blood Count 10.6th/mm3 (3.8-10.1) Red Blood Count 3.87mil/mm3 (3.90-5.20) Hemoglobin 11.5g/dL (12.0-15.6) Hematocrit 34.9% (35.0-46.0) Mean Corpuscular Volume 90.2fL (81-100) Mean Corpuscular Hemoglobin 29.7pg (27.0-35.0) Mean Corpuscular Hemoglobin Concent 33.0% (32.0-37.0) Red Cell Distribution Width 12.0% (12.3-15.4) Platelet Count 307bil/L (150-400) Neutrophils (%) (Auto) 68.5% (40-74) Lymphocytes (%) (Auto) 24.0% (14-46) Monocytes (%) (Auto) 5.7% (4-12) Eosinophils (%) (Auto) 1.4% (0-5) Basophils (%) (Auto) 0.2% (0-3) Sodium Level 141mEq/L (134-144) Potassium Level 4.2mEq/L (3.5-5.2) Chloride Level 104mEq/L (97-108) Carbon Dioxide Level 25mmol/L (18-29) Blood Urea Nitrogen 10mg/dL (6-20) Creatinine 0.63mg/dL (0.57-1.00) Estimat Glomerular Filtration Rate 171mL/min (>59) Glucose Level 88mg/dL (60-99) Calcium Level 8.9mg/dL (8.5-10.1) Magnesium Level 1.8mg/dL (1.6-2.6) Total Bilirubin 0.2mg/dL (0.0-1.2) Aspartate Amino Transf (AST/SGOT) 19U/L (0-50) Alanine Aminotransferase (ALT/SGPT) 19U/L (0-32) Alkaline Phosphatase 85U/L (25-150) Total Protein 6.2g/dL (6.4-8.4) Albumin 3.9g/dL (3.4-5.0) Lipase 21U/L (13-60) Hold Puckett Top Tube Received (Received) Plan Impression Patient chart reviewed, patient interviewed and anesthestic plan with risks, benefits, and alternatives discussed, and informed consent obtained. NPO Status: L&D Protocol Other note created in error Miles Noel MD May 25, 2016 22:27
[2016-05-26] MEDS ORDERED: ONDA8TAB10 PO (00:13)
[2016-05-26 00:27] VITALS: BP 140/65; PULSE 74; RESP 25; O2SAT 99
[2016-09-29] MEDS ORDERED: CITA40TA13 PO (18:34)
[2016-09-29] MEDS ORDERED: DESO1TAB35 PO (18:34)
[2016-09-29] MEDS ORDERED: BUSP10TA2 PO (18:34)
== END 2016-05-26 00:50 | disposition home or self-care (01) ==
LOC: SED 20:01
DX: G97.1 Other reaction to spinal and lumbar puncture (principal); K92.0 Hematemesis; G43.809 Other migraine, not intractable, without status migrainosus; Z88.0 Allergy status to penicillin; Z88.1 Allergy status to other antibiotic agents; Z88.2 Allergy status to sulfonamides